=== PATIENT | female | born 1950 | race Caucasian/White ===

== ENCOUNTER → 2017-12-26 11:30 | Outpatient (CLI) | payer MEDICARE, OTHER, SELFPAY ==
--- NOTE | 2017-12-26 | DI.MG.S_ITS ---
BILATERAL DIGITAL SCREENING MAMMOGRAM 3D/2D WITH CAD: 12/26/2017 CLINICAL: Routine screening. Family history of breast cancer. Comparison is made to exams dated: 12/14/2016 mammogram - [facility] and 07/01/2015 mammogram - [facility]. There are scattered fibroglandular elements in both breasts. Current study was also evaluated with a Computer Aided Detection (CAD) system. There is a focal asymmetry in the left breast central to the nipple anterior depth. No other significant masses, calcifications, or other findings are seen in either breast. IMPRESSION: INCOMPLETE: NEEDS ADDITIONAL IMAGING EVALUATION The focal asymmetry in the left breast is indeterminate. Additional views with possible ultrasound are recommended. This exam was interpreted at Station ID: [id number]. NOTE: For mammograms, a report in lay terms will be sent to the patient. Approximately 15% of breast malignancies will not be visualized mammographically. In the management of a palpable breast mass, a negative mammogram must not discourage biopsy of a clinically suspicious lesion. Electronically Signed By: Jaron lu/heidi:12/26/2017 15:39:09 letter sent: Additional Imaging Needed ACR BI-RADS Category 0: Incomplete 3340F
== END ==
PROVIDERS: Family Provider Physician Assistant; PCP Physician Assistant; Visit Provider Physician Assistant
DX: Z12.31 Encounter for screening mammogram for malignant neoplasm of breast (principal); Z80.3 Family history of malignant neoplasm of breast
CPT/HCPCS: 77063; 77067

== ENCOUNTER → 2018-01-09 08:23 | Outpatient (CLI) | payer OTHER, SELFPAY ==
[2018-01-09 08:57] LABS: Bacteria Urine None Seen; RBC Urine None Seen (0-5/HPF); WBC Urine None Seen (0-5/HPF)
[2018-01-09 09:21] LABS: Appearance Urine UA CLEAR; Bilirubin Urine UA NEGATIVE (NEGATIVE); Color Urine UA YELLOW; Glucose Urine UA NEGATIVE (Normal); Ketones Urine UA NEGATIVE (NEGATIVE); Leukocyte Esterase Urine UA NEGATIVE (NEGATIVE); Nitrite Urine UA Negative (Negative); Occult Blood Urine UA TRACE-INTACT (Negative); Protein Urine UA NEGATIVE (Negative); Urobilinogen Urine UA 0.2 E.U./dL (0.2)
[2018-01-09 09:33] LABS: Culture Indicated Urine Cult Not Indicated; Urine Comments Microscopic Normal
[2018-01-09 09:57] LABS: Alanine Aminotransferase 33 IU/L (9-52); Albumin 4.5 g/dL (3.5-5.0); Albumin Globulin Ratio 1.5 (1.0-2.8); Alkaline Phosphatase 72 U/L (38-126); Aspartate Aminotransferase 45 IU/L (14-36); Bilirubin Total 0.6 mg/dL (0.2-1.3); Blood Urea Nitrogen 8 mg/dL (7-17); Calcium 9.9 mg/dL (8.4-10.2); Carbon Dioxide 29 mmol/L (22-32); Chloride 99 mmol/L (98-107); Cholesterol 234 mg/dL (140-199); Estimated Glomerular Filt Rate > 60.0 mL/min (>60); Globulin 3.1 g/dL (1.7-4.1); Glucose 94 mg/dL (80-110); HDL Cholesterol 63 mg/dL (40-60); HEMOLYSIS < 15 (0-50); LDL Cholesterol Calculated 107 mg/dL (<100); Sodium 140 mmol/L (137-145); Total Protein 7.6 g/dL (6.3-8.2); Triglycerides 318 mg/dL (35-150)
[2018-01-11 16:31] LABS: 1 25 Dihydroxy Vitamin D 54 pg/mL (18-72)
== END ==
PROVIDERS: PCP Physician Assistant; Visit Provider Physician Assistant
DX: Z00.01 Encounter for general adult medical examination with abnormal findings (principal); M85.88 Other specified disorders of bone density and structure, other site; E28.39 Other primary ovarian failure; N95.9 Unspecified menopausal and perimenopausal disorder
CPT/HCPCS: 36415; 77080; 80053; 80061; 81001; 82652

== ENCOUNTER → 2018-01-11 14:07 | Outpatient (CLI) | payer OTHER, SELFPAY ==
--- NOTE | 2018-01-11 14:11 | DI.MG.S_ITS ---
UNILATERAL LEFT DIGITAL DIAGNOSTIC MAMMOGRAM 3D/2D WITH ADDITIONAL VIEWS: 01/11/2018 CLINICAL: Additional evaluation requested from prior study. Comparison is made to exams dated: 12/26/2017 mammogram, 12/14/2016 mammogram - [facility], and 07/01/2015 mammogram - [facility]. There are scattered fibroglandular elements in the left breast. There is a benign oval equal density asymmetry with an indistinct margin in the left breast at 12 o'clock middle depth. This is not seen in additional views. No other significant masses or calcifications are seen in the breast. IMPRESSION: BENIGN There is no mammographic evidence of malignancy. A 1 year screening mammogram is recommended. This exam was interpreted at Station ID: [id number]. NOTE: For mammograms, a report in lay terms will be sent to the patient. Approximately 15% of breast malignancies will not be visualized mammographically. In the management of a palpable breast mass, a negative mammogram must not discourage biopsy of a clinically suspicious lesion. Electronically Signed By: Gene friedman/heidi:01/11/2018 14:53:49 letter sent: Normal Exam ACR BI-RADS Category 2: Benign Finding(s) 3342F
== END ==
PROVIDERS: PCP Physician Assistant; Visit Provider Physician Assistant
DX: R92.8 Other abnormal and inconclusive findings on diagnostic imaging of breast (principal)
CPT/HCPCS: 77065; G0279

== ENCOUNTER 2018-02-14 19:49 | Emergency (ER) | payer OTHER, SELFPAY ==
[2018-02-14 19:53] VITALS: BP 108/73; PULSE 75; RESP 16; TEMP 36.4; O2SAT 99
--- NOTE | 2018-02-14 22:48 | PC.NURSE ---
GLF, denies loc/neck pain/dizziness/nausea or other sx, approx 3 cms lac to lt forehead, bleeding controlled with light pressure, amb ind
--- NOTE | 2018-02-14 22:50 | ED_ITS ---
HPI - Wound/Laceration General Chief Complaint: Wound/Laceration Stated Complaint: FACIAL INJURY S/P FALL Time Seen by Provider: 02/14/18 22:41 Source: patient Mode of arrival: ambulatory Limitations: no limitations History of Present Illness HPI narrative: 59-year-old female here for evaluation of a fall and a laceration to her left forehead. Patient states that she was out on a walk where she tripped and fell and hit her head. Did not lose consciousness bleed did have bleeding afterwards. Last tetanus shot was within the past 10 years. No vision changes. No new changes in dentition. Has an abrasion to her left arm from the fall around her left elbow. No other injuries reported Related Data Home Medications Medication Instructions Recorded Confirmed metronidazole [Metrogel] 0.075 % TOPICAL PRN #0 11/10/16 01/16/18 Previous Rx's Medication Instructions Recorded atorvastatin 10 mg tablet 10 mg PO HS #90 tab 12/07/17 levothyroxine 50 mcg tablet 50 mcg PO QAM #90 tab 12/07/17 raloxifene 60 mg tablet 60 mg PO DAILY #30 tab 01/16/18 Allergies Allergy/AdvReac Type Severity Reaction Status Date / Time tetracycline [TETRACYCLINE] Allergy Severe n/v Verified 01/16/18 12:32 Sulfa (Sulfonamide Allergy Unknown rash Verified 01/16/18 12:32 Antibiotics) [SULFA (SULFONAMIDE ANTIBIOTICS)] Review of Systems Constitutional Denies fatigue, Denies fever(s), Denies frequent falls and Denies headache(s) Eyes Denies blurry vision, Denies diplopia and Denies loss of vision ENT Ears, Nose, Mouth, and Throat: Denies dental pain, Denies vertigo, Denies dizziness, Denies headache(s), Denies mouth pain, Denies nasal trauma, Denies neck pain, Denies disequilibrium, Denies sinus pain and Denies sore throat Cardiovascular Denies chest pain and Denies dyspnea Respiratory Denies dyspnea Gastrointestinal Gastrointestinal: Denies diarrhea, Denies nausea and Denies vomiting Musculoskeletal Denies abnormal gait, Denies myalgias, Denies arthralgias and Denies neck pain Integumentary/Breasts Reports wounds ( left-sided of her forehead) Neurologic Denies abnormal gait, Denies behavioral changes, Denies vertigo, Denies dizziness, Denies frequent falls, Denies headache(s), Denies lack of coordination, Denies loss of vision, Denies seizure-like activity and Denies disequilibrium Psychiatric Denies behavioral changes Endocrine Denies fatigue Hematologic/Lymphatic Denies easy bleeding and Denies easy bruising FOR[facility]LY [facility] Medical History Mixed hyperlipidemia (Chronic) Osteopenia after menopause (Chronic) Actinic keratosis (Chronic 2008) Ankle pain (Chronic 2014) Foot pain (Chronic 2014) Hypercholesterolemia (Chronic Unknown) Hyperlipemia (Chronic ~1989) Hypothyroidism (Chronic ~1999) Rosacea (Chronic Unknown) Chickenpox (Resolved 1956) Fractures (Resolved 1963) Measles (Resolved 1957) Mumps (Resolved ~1949) Rubella (Resolved ~1949) Surgical History History of shoulder surgery (Resolved 1987) History of tonsillectomy Family History Father Heart disease High cholesterol Grandmother Diabetes mellitus Mother Hypertension Grandfather Stroke Grandfather Cancer Grandmother No problems noted. Other Family history of cardiovascular disease Social History Smoking Status: Never smoker alcohol intake: never substance use type: does not use Exam Initial Vital Signs Initial Vital Signs: Vital Signs Temperature 97.5 F L 02/14/18 19:53 Pulse Rate 75 02/14/18 19:53 Respiratory Rate 16 02/14/18 19:53 Blood Pressure 108/73 02/14/18 19:53 Pulse Oximetry 99 02/14/18 19:53 Const General: cooperative, healthy appearing, comfortable, well developed, well groomed and No acute distress Nutritional Appearance: average body habitus Orientation: alert, awake and oriented x3 HENMT Head: laceration (left forehead) Ears: hearing grossly normal bilaterally and TM's normal bilaterally Nose: external nose normal and septum normal Face and sinus: normal facial exam Mouth: oral mucosae normal Teeth and gingiva: dentition normal Eyes General: appearance normal, both eyes and all related structures Pupils: PERRL EOM: EOM intact bilaterally Back/Spine/Pelvis Cervical Spine: normal cervical lordosis, No cervical spasm, No cervical spinal tenderness and No step off deformity Skin Other: 2 cm linear laceration left forehead. No active bleeding. No foreign body seen. Small superficial abrasion to the lateral aspect of her left elbow. Neuro General: alert, awake and oriented x3 Cognition: normal cognition Speech: speech normal Extrem General: normal to inspection Other: Full range of motion left elbow Procedures Laceration Repair Laceration 1: Site: face Side (If applicable): left Size (cm): 2 Description: linear Depth: simple, single layer Local Anesthetic: lidocaine 1% Amount of anesthesia used (mL): 3 Pre-repair: wound explored, irrigated extensively and deep structures intact Skin layer closed with: other ( chromic) Size (cm): 4-0 Number of sutures: 7 Course Vital Signs - 8 hr 02/14/18 19:53 Temperature 97.5 F L Pulse Rate 75 Respiratory Rate 16 Blood Pressure 108/73 Pulse Oximetry 99 MDM - Wound/Laceration MDM Narrative Medical decision making narrative: patient with what appears to be mechanical fall resulting in an abrasion over her left elbow and laceration to her left forehead. Laceration was sutured as described above. Patient tolerated procedure well. She was given care instructions. She was given return precautions. Will hold on any further workup for now. She expressed understanding and agreed with plan. Discharge Plan Departure Patient Disposition: Home, Self-Care Clinical Impression: Facial laceration Discharge Date/Time: 02/15/18 00:46 Interventions: ED Discharge Assessment Last Done: 02/15/18 00:46 Instructions: DI for Laceration Repair -- Simple, How to Care for a Surgical Wound-Stitches Activity Restrictions/Additional Instructions: keep the bandage on your head for the next 24 hr. After that you can shower like normal. You can use soap and water. Do not scrub the area. After 24 hr cover the area Like we discussed. the stitches should come out on their own however if they are still there in 7 days they do need to be removed. This can be done by your primary care doctor. Return to the emergency department for any new or worsening symptoms Prescriptions: No Action raloxifene 60 mg tablet 60 mg PO DAILY Qty: 30 RF: 0 metronidazole [Metrogel] 1 % gel 0.075 % Topical PRN Qty: 0 RF: 0 atorvastatin [Lipitor] 10 mg tablet 10 mg PO HS Qty: 90 RF: 3 levothyroxine [Synthroid] 50 mcg tablet 50 mcg PO QAM Qty: 90 RF: 3
== END 2018-02-15 00:46 | disposition home or self-care (01) ==
PROVIDERS: Emergency Provider Emergency Medicine; Family Provider Physician Assistant; PCP Physician Assistant
DX: S01.81XA Laceration without foreign body of other part of head, initial encounter (principal); W01.0XXA Fall on same level from slipping, tripping and stumbling without subsequent striking against object, initial encounter
CPT/HCPCS: 12011; 99282; 99283

== ENCOUNTER 2018-03-11 16:11 | Emergency (ER) | payer OTHER, SELFPAY ==
[2018-03-11 16:17] VITALS: BP 136/80; PULSE 79; RESP 20; TEMP 36.9; O2SAT 98; BMI 24.1
--- NOTE | 2018-03-11 16:28 | ED.EXTPRO ---
HPI - Extremity Problem <Rowena Phan PA-C - Last Filed: 03/11/18 21:49> General Chief complaint: Extremity Problem,Nontraumatic Stated complaint: RIGHT LEG, SUDDEN ONSET PAIN,THINKS BLOOD CLOT Time Seen by Provider: 03/11/18 16:29 Source: patient Mode of arrival: ambulatory Limitations: no limitations History of Present Illness HPI Narrative: This 67-year-old female comes to the ED today due to concern for blood clot. She states that she was seen at urgent care and sent here. She states that she had onset of pain without any known trauma last night, worse with flexing the foot and using the accelerator. She was on her feet for several hours today and states the pain has worsened after standing, better at rest. She is concerned about possible blood clot after noticing a little bit of swelling and reading side effects of Raloxifene which she just started in the last few weeks.. She states that the pain is mainly around the ankle, not in the calf. She denies any chest pain or dyspnea. She denies any nausea. She states she has a mild headache which has not kept her from activity, no vision change or other new complaints on systems review. She denies any personal or family history of blood clots. Last time she traveled was over a month ago prior to starting Raloxifene Related Data Home Medications Medication Instructions Recorded Confirmed metronidazole [Metrogel] 0.075 % TOPICAL PRN #0 11/10/16 01/16/18 Previous Rx's Medication Instructions Recorded atorvastatin 10 mg tablet 10 mg PO HS #90 tab 12/07/17 levothyroxine 50 mcg tablet 50 mcg PO QAM #90 tab 12/07/17 raloxifene 60 mg tablet 60 mg PO DAILY #30 tab 03/06/18 Allergies Allergy/AdvReac Type Severity Reaction Status Date / Time tetracycline [TETRACYCLINE] Allergy Severe n/v Verified 01/16/18 12:32 Sulfa (Sulfonamide Allergy Unknown rash Verified 01/16/18 12:32 Antibiotics) [SULFA (SULFONAMIDE ANTIBIOTICS)] Review of Systems <Rowena Phan PA-C - Last Filed: 03/11/18 21:49> Review of Systems All systems reviewed & are unremarkable except as noted in HPI and below Exam <Rowena Phan PA-C - Last Filed: 03/11/18 21:49> Narrative Exam Narrative: GENERAL APPEARANCE: Patient sitting comfortably, in no distress. NECK/THYROID: Neck supple, no JVD. LUNGS: Clear to auscultation bilaterally. HEART: Regular rate and rhythm without murmur, normal S1, S2, no S3 or S4. ABDOMEN: Soft, NT, ND, + BS x 4 quadrants EXTREMITIES: No cyanosis or trace R. pedal edema. No calf tenderness NEUROLOGIC: Alert and oriented, normal speech, gait and coordination. MS: Trace R. medial ankle effusion, mild TTP around the lateral ankle. Achilles intact by palpation. No TTP ove the foot or toes, full AROM Initial Vital Signs Initial Vital Signs: Vital Signs Temperature 98.5 F 03/11/18 16:17 Pulse Rate 79 03/11/18 16:17 Respiratory Rate 20 03/11/18 16:17 Blood Pressure 136/80 H 03/11/18 16:17 Pulse Oximetry 98 03/11/18 16:17 <Juan Caruso MD - Last Filed: 03/12/18 07:44> Initial Vital Signs Initial Vital Signs: Vital Signs Temperature 98.5 F 03/11/18 16:17 Pulse Rate 79 03/11/18 16:17 Respiratory Rate 20 03/11/18 16:17 Blood Pressure 136/80 H 03/11/18 16:17 Pulse Oximetry 98 03/11/18 16:17 Course <Rowena Phan PA-C - Last Filed: 03/11/18 21:49> Orders Ordered: ED Orders 03/11/18 17:02 periph venous low extrem rt Stat Vital Signs - 8 hr 03/11/18 16:17 03/11/18 18:33 03/11/18 18:35 Temperature 98.5 F Pulse Rate 79 78 78 Respiratory Rate 20 16 20 Blood Pressure 136/80 H 112/82 H Blood Pressure [Left Arm] 112/82 H Pulse Oximetry 98 97 98 <Juan Caruso MD - Last Filed: 03/12/18 07:44> Orders Ordered: ED Orders 03/11/18 17:02 perip venous low extrem rt Stat Vital Signs - 8 hr 03/11/18 16:17 03/11/18 18:33 03/11/18 18:35 Temperature 98.5 F Pulse Rate 79 78 78 Respiratory Rate 20 16 20 Blood Pressure 136/80 H 112/82 H Blood Pressure [Left Arm] 112/82 H Pulse Oximetry 98 97 98 MDM - Extremity (Nontraumatic) <Rowena Phan PA-C - Last Filed: 03/11/18 21:49> Imaging Data Venous US: Radiologist's impression: View Report History [address] [address] Ultrasound Report Signed Patient: Mariya Cárdenas MR#: [id number] : 1950 Acct:[id number] Age/Sex: 67 / F Date of Service: 03/11/18 Loc: ED Accession Number: [id number] Procedure: US periph venous low extrem rt Ordering Provider: Rowena Phan P.A-C PROCEDURE: US PERIPH VENOUS LOW EXTREM RT INDICATIONS: RIGHT ANKLE PAIN, EDEMA TECHNIQUE: Real-time imaging, as well as color and pulse Doppler interrogation, were performed of the lower extremity deep veins from the inguinal ligament to the popliteal fossa. COMPARISON: None. FINDINGS: The deep veins are normally compressible, and free of intraluminal thrombus. Color and pulse Doppler demonstrate normal phasic intraluminal flow. There is normal augmentation response to distal compression maneuver. IMPRESSION: No evidence of right lower extremity DVT. Dictated by: Brien Ye M.D. on 03/11/2018 at 17:58 Approved by: Brien Ye M.D. on 03/11/2018 at 17:58 Discharge Plan Departure Patient Disposition: Home Clinical Impression: Ankle strain Discharge Date/Time: 03/11/18 18:35 Interventions: ED Discharge Assessment Last Done: 03/11/18 18:35 Instructions: DI for Ankle Sprain Activity Restrictions/Additional Instructions: You should return if you have any acutely worsening symptoms, or new symptoms such as redness or fever. There was no sign of a blood clot on your ultrasound today, and this may be more of a muscular or soft tissue strain that is causing your discomfort. Please wear the splint that we gave you whenever you are on your feet. Gentle walking is okay, but try not to be on your ft for long periods of time or on uneven ground. This is likely to take 4-8 weeks to fully resolve, but you should follow up with your PCP if not starting to improve by next week as you may need further testing. Prescriptions: No Action metronidazole [Metrogel] 1 % gel 0.075 % Topical PRN Qty: 0 RF: 0 atorvastatin [Lipitor] 10 mg tablet 10 mg PO HS Qty: 90 RF: 3 levothyroxine [Synthroid] 50 mcg tablet 50 mcg PO QAM Qty: 90 RF: 3 raloxifene 60 mg tablet 60 mg PO DAILY Qty: 30 RF: 0 Referrals: Palak Collado PA-C [Primary Care Provider] - <Juan Caruso MD - Last Filed: 03/12/18 07:44> Sign Out Provider Sign Out Attestation: The PA/VEHICLE UPHOLSTERER functioned independently for the care of this pt, I was available, but not asked to participate in care. I am unable to determine appropriateness of management without personally examining the pt.
--- NOTE | 2018-03-11 17:02 | DI.US.S_ITS ---
PROCEDURE: US PERIPH VENOUS LOW EXTREM RT INDICATIONS: RIGHT ANKLE PAIN, EDEMA TECHNIQUE: Real-time imaging, as well as color and pulse Doppler interrogation, were performed of the lower extremity deep veins from the inguinal ligament to the popliteal fossa. COMPARISON: None. FINDINGS: The deep veins are normally compressible, and free of intraluminal thrombus. Color and pulse Doppler demonstrate normal phasic intraluminal flow. There is normal augmentation response to distal compression maneuver. IMPRESSION: No evidence of right lower extremity DVT. Dictated by: Brien Ye M.D. on 03/11/2018 at 17:58 Approved by: Brien Ye M.D. on 03/11/2018 at 17:58
[2018-03-11 18:33] VITALS: BP 112/82; PULSE 78; RESP 16; O2SAT 97
[2018-03-11 18:35] VITALS: BP 112/82; PULSE 78; RESP 20; O2SAT 98
== END 2018-03-11 18:35 | disposition home or self-care (01) ==
PROVIDERS: Emergency Provider Internal Medicine; Family Provider Physician Assistant; PCP Physician Assistant
DX: S96.911A Strain of unspecified muscle and tendon at ankle and foot level, right foot, initial encounter (principal); X50.1XXA Overexertion from prolonged static or awkward postures, initial encounter
CPT/HCPCS: 93971; 99282; 99285

== ENCOUNTER → 2018-05-05 08:36 | Outpatient (CLI) | payer OTHER, SELFPAY ==
[2018-05-05 10:18] LABS: Cholesterol 184 mg/dL (140-199); HDL Cholesterol 63 mg/dL (40-60); LDL Cholesterol Calculated 91 mg/dL (<100); Triglycerides 150 mg/dL (35-150)
== END ==
PROVIDERS: PCP Physician Assistant; Visit Provider Physician Assistant
DX: E78.2 Mixed hyperlipidemia (principal)
CPT/HCPCS: 36415; 80061

== ENCOUNTER → 2018-12-06 11:57 | Outpatient (CLI) | payer OTHER, SELFPAY ==
[2018-12-06 13:39] LABS: Thyroid Stimulating Hormone 3.82 uIU/mL (0.47-4.68)
== END ==
PROVIDERS: Family Provider Physician Assistant; PCP Physician Assistant; Visit Provider Registered Nurse
DX: E03.9 Hypothyroidism, unspecified (principal)
CPT/HCPCS: 36415; 84443

== ENCOUNTER → 2019-01-15 12:01 | Outpatient (CLI) | payer OTHER, SELFPAY ==
--- NOTE | 2019-01-15 12:03 | DI.MG.S_ITS ---
BILATERAL DIGITAL SCREENING MAMMOGRAM 3D/2D WITH CAD: 01/15/2019 CLINICAL: Routine screening. Family history of breast cancer. Comparison is made to exams dated: 12/26/2017 mammogram, 12/14/2016 mammogram - [facility], and 07/01/2015 mammogram - [facility]. There are scattered fibroglandular elements in both breasts. Current study was also evaluated with a Computer Aided Detection (CAD) system. No significant masses, calcifications, or other findings are seen in either breast. There has been no significant interval change. IMPRESSION: NEGATIVE There is no mammographic evidence of malignancy. A 1 year screening mammogram is recommended. This exam was interpreted at Station ID: [id number]. NOTE: For mammograms, a report in lay terms will be sent to the patient. Approximately 15% of breast malignancies will not be visualized mammographically. In the management of a palpable breast mass, a negative mammogram must not discourage biopsy of a clinically suspicious lesion. Electronically Signed By: Keshia hudson/heidi:01/15/2019 12:50:48 letter sent: Normal Exam ACR BI-RADS Category 1: Negative 3341F
== END ==
PROVIDERS: Family Provider Physician Assistant; PCP Physician Assistant; Visit Provider Physician Assistant
DX: Z12.31 Encounter for screening mammogram for malignant neoplasm of breast (principal); Z80.3 Family history of malignant neoplasm of breast
CPT/HCPCS: 77063; 77067

== ENCOUNTER → 2019-07-23 08:08 | Outpatient (CLI) | payer OTHER, SELFPAY ==
[2019-07-23 10:45] LABS: Alanine Aminotransferase 18 IU/L (<35); Albumin 4.8 g/dL (3.5-5.0); Albumin Globulin Ratio 1.8 (1.0-2.8); Alkaline Phosphatase 71 U/L (38-126); Aspartate Aminotransferase 42 IU/L (14-36); Bilirubin Total 0.7 mg/dL (0.2-1.3); Blood Urea Nitrogen 9 mg/dL (7-17); Calcium 9.7 mg/dL (8.4-10.2); Carbon Dioxide 26 mmol/L (22-32); Chloride 101 mmol/L (98-107); Cholesterol 312 mg/dL (140-199); Estimated Glomerular Filt Rate > 60.0 mL/min (>60); Globulin 2.7 g/dL (1.7-4.1); Glucose 89 mg/dL (80-110); HDL Cholesterol 55 mg/dL (40-60); HEMOLYSIS < 15 (0-50); LDL Cholesterol Calculated 211 mg/dL (<100); Sodium 137 mmol/L (137-145); Total Protein 7.5 g/dL (6.3-8.2); Triglycerides 231 mg/dL (35-150)
[2019-07-23 10:54] LABS: Vitamin D 25 Hydroxy (D3) 47.3 ng/mL (30.0-100.0)
[2019-07-23 11:08] LABS: Thyroid Stimulating Hormone 4.55 uIU/mL (0.47-4.68)
== END ==
PROVIDERS: PCP Physician Assistant; Visit Provider Physician Assistant
DX: E78.2 Mixed hyperlipidemia (principal); M81.0 Age-related osteoporosis without current pathological fracture
CPT/HCPCS: 36415; 80053; 80061; 82306; 84443

== ENCOUNTER → 2020-01-09 07:11 | Outpatient (CLI) | payer MEDICARE, SELFPAY ==
[2020-01-09 07:17] LABS: Bacteria Urine None Seen
[2020-01-09 08:03] LABS: Alanine Aminotransferase 19 IU/L (<35); Albumin 4.4 g/dL (3.5-5.0); Albumin Globulin Ratio 1.7 (1.0-2.8); Alkaline Phosphatase 67 U/L (38-126); Aspartate Aminotransferase 39 IU/L (14-36); BUN Creatinine Ratio 16.4 (6-22); Bilirubin Total 0.4 mg/dL (0.2-1.3); Blood Urea Nitrogen 9 mg/dL (7-17); Calcium 9.8 mg/dL (8.4-10.2); Carbon Dioxide 27 mmol/L (22-32); Chloride 103 mmol/L (98-107); Cholesterol 189 mg/dL (140-199); Estimated Glomerular Filt Rate > 60.0 mL/min (>60); Globulin 2.6 g/dL (1.7-4.1); Glucose 89 mg/dL (80-110); HDL Cholesterol 55 mg/dL (40-60); HEMOLYSIS < 15 (0-50); LDL Cholesterol Calculated 85 mg/dL (<100); Potassium 4.3 mmol/L (3.4-5.1); Sodium 138 mmol/L (137-145); Triglycerides 244 mg/dL (35-150)
[2020-01-09 08:34] LABS: Thyroid Stimulating Hormone 5.52 uIU/mL (0.47-4.68)
[2020-01-09 10:10] LABS: Appearance Urine UA CLEAR; Bilirubin Urine UA NEGATIVE (NEGATIVE); Color Urine UA YELLOW; Glucose Urine UA NEGATIVE (Negative); Ketones Urine UA NEGATIVE (NEGATIVE); Leukocyte Esterase Urine UA NEGATIVE (NEGATIVE); Nitrite Urine UA NEGATIVE (Negative); Occult Blood Urine UA TRACE-INTACT (Negative); Protein Urine UA NEGATIVE (Negative); Urobilinogen Urine UA 0.2 E.U./dL (0.2)
[2020-01-09 10:36] LABS: Culture Indicated Urine Cult Not Indicated; RBC Urine 0-1/HPF (0-5/HPF); Squamous Epithelial Cell Urine 0-1 /HPF (0-5/HPF); WBC Urine 0-1/HPF (0-5/HPF)
== END ==
PROVIDERS: PCP Nurse Practitioner Family; Referring Provider Nurse Practitioner Family; Visit Provider Nurse Practitioner Family
DX: R31.29 Other microscopic hematuria (principal); R74.8 Abnormal levels of other serum enzymes; E03.9 Hypothyroidism, unspecified; E78.2 Mixed hyperlipidemia
CPT/HCPCS: 36415; 80053; 80061; 81001; 84443

== ENCOUNTER 2020-02-02 21:23 | Emergency (ER) | payer MEDICARE, SELFPAY ==
[2020-02-02] VITALS (8 sets, daily range): BP systolic 100–134; BP diastolic 63–73; PULSE 87–114; RESP 13–28; TEMP 37.6; O2SAT 86–99; BMI 24.3
[2020-02-02 22:16] LABS: Add Manual Diff / Slide Review NO; Basophils Absolute Auto 200 /uL (0-100); Basophils Percent Auto 0.8 % (0-2); Eosinophils Absolute Auto 100 /uL (0-450); Eosinophils Percent Auto 0.3 % (2-4); Hematocrit 39.6 % (36-46); Hemoglobin 13.2 g/dL (12.0-16.0); Lymphocytes Absolute Auto 2500 /uL (1100-4500); Lymphocytes Percent Auto 12.8 % (25-40); Mean Corpuscular HGB Conc 33.2 % (30-36); Mean Corpuscular Hemoglobin 29.9 PG (26-34); Mean Corpuscular Volume 89.9 fL (80-100); Monocytes Absolute Auto 1800 /uL (0-900); Monocytes Percent Auto 9.3 % (3-14); Neutrophils Absolute Auto 14800 /uL (1500-7000); Neutrophils Percent Auto 76.8 % (50-75); Platelet Count 272 X10^3/uL (150-400); Red Blood Cell Count 4.41 X10^6/uL (4.0-5.2); Red Cell Distribution Width 13.2 % (11.6-14.8); White Blood Cell Count 19.3 X10^3/uL (4.5-11.0)
[2020-02-02 22:22] LABS: Bacteria Urine Occasional (0-1); Culture Indicated Urine Specimen Cultured; RBC Urine 0-1/HPF (0-5/HPF); Squamous Epithelial Cell Urine 0-1 /HPF (0-5/HPF); WBC Urine 0-1/HPF (0-5/HPF)
[2020-02-02 22:26] LABS: Alanine Aminotransferase 15 IU/L (<35); Albumin 4.5 g/dL (3.5-5.0); Albumin Globulin Ratio 1.6 (1.0-2.8); Alkaline Phosphatase 73 U/L (38-126); Aspartate Aminotransferase 34 IU/L (14-36); BUN Creatinine Ratio 16.4 (6-22); Bilirubin Total 0.7 mg/dL (0.2-1.3); Blood Urea Nitrogen 9 mg/dL (7-17); Calcium 9.6 mg/dL (8.4-10.2); Carbon Dioxide 22 mmol/L (22-32); Chloride 100 mmol/L (98-107); Estimated Glomerular Filt Rate > 60.0 mL/min (>60); Globulin 2.8 g/dL (1.7-4.1); Glucose 129 mg/dL (80-110); HEMOLYSIS < 15 (0-50); Lipase 46 U/L (23-300); Potassium 3.6 mmol/L (3.4-5.1); Sodium 133 mmol/L (137-145); Total Protein 7.3 g/dL (6.3-8.2)
[2020-02-02 22:27] LABS: Lactate (Lactic Acid) 1.1 mmol/L (0.7-2.1)
--- NOTE | 2020-02-02 22:55 | ED_ITS ---
HPI - General Adult General Chief complaint: Abdominal Pain Stated complaint: abdominal pain since last night, feels like gas Time Seen by Provider: 02/02/20 21:53 Source: patient Mode of arrival: Ambulatory Limitations: no limitations History of Present Illness HPI narrative: 69-year-old female here for evaluation of bilateral lower abdominal pain. She states that her symptoms started yesterday. She describes it as a cast pain like sensation. She states that it does come and go. Had to ?normal? bowel movements today without any change in the symptoms. No nausea vomiting. Did report a fever earlier today. Has had multiple colonoscopies in the past which she was told were unremarkable. There were 10 years in between the colonoscopies. There are never any biopsies taken. No prior abdominal surgeries. Has not tried anything for symptoms prior to arrival Related Data Home Medications Medication Instructions Recorded Confirmed metronidazole [Metrogel] 0.075 % TOPICAL PRN #0 11/10/16 01/02/20 ketoconazole 2 % topical cream 1 applictn TOP DAILY PRN 01/02/20 01/02/20 Previous Rx's Medication Instructions Recorded raloxifene 60 mg tablet 60 mg PO DAILY #90 tab 07/23/19 atorvastatin 10 mg tablet 10 mg PO HS #90 tab 12/10/19 levothyroxine 50 mcg tablet 50 mcg PO QAM #90 tab 12/10/19 levothyroxine 75 mcg tablet 75 mcg PO DAILY #90 tab 01/10/20 ciprofloxacin HCl 500 mg PO BID 10 Days #20 tab 02/03/20 metronidazole [Flagyl] 500 mg PO TID 10 Days #30 tab 02/03/20 Allergies Allergy/AdvReac Type Severity Reaction Status Date / Time tetracycline [TETRACYCLINE] Allergy Severe n/v Verified 01/02/20 13:35 Sulfa (Sulfonamide Allergy Unknown rash Verified 01/02/20 13:35 Antibiotics) [SULFA (SULFONAMIDE ANTIBIOTICS)] Review of Systems Constitutional Constitutional: Reports fever(s) and Denies headache(s) ENT Ears, Nose, Mouth, and Throat: Denies headache(s) Cardiovascular Cardiovascular: Denies chest pain and Denies dyspnea Respiratory Respiratory: Denies dyspnea Gastrointestinal Gastrointestinal: Reports abdominal pain, Denies change in bowel habits, Denies nausea and Denies vomiting Genitourinary Genitourinary: Denies dysuria Genitourinary: Denies dysuria Musculoskeletal Musculoskeletal: Denies arthralgias and Denies myalgias Integumentary/Breasts Skin/Breast: Denies rash Neurologic Neurologic: Denies behavioral changes and Denies headache(s) Psychiatric Psychiatric: Denies behavioral changes Hematologic/Lymphatic Hematologic/Lymphatic: Denies easy bleeding and Denies easy bruising Patient History Medical History Actinic keratosis (Chronic 2008) Ankle pain (Chronic 2014) Chickenpox (Resolved 1956) Foot pain (Chronic 2014) Fractures (Resolved 1963) Hypercholesterolemia (Chronic Unknown) Hyperlipemia (Chronic ~1989) Hypothyroidism (Chronic ~1999) Impacted cerumen, bilateral (Acute) Measles (Resolved 1957) Microscopic hematuria (Acute) Mixed hyperlipidemia (Chronic) Mumps (Resolved ~1949) Osteopenia after menopause (Chronic) Rosacea (Chronic Unknown) Rubella (Resolved ~1949) Screening for malignant neoplasm of breast (Acute) Surgical History History of shoulder surgery (Resolved 1987) History of tonsillectomy Family History Father Heart disease High cholesterol Grandmother Diabetes mellitus Mother Hypertension Grandfather Stroke Grandfather Cancer Grandmother No problems noted. Other Family history of cardiovascular disease Social History Smoking Status: Never smoker second hand exposure: No alcohol intake: never substance use type: does not use Smoking Status: Never smoker Substance Use Type: does not use Exam Initial Vital Signs Initial Vital Signs: Vital Signs Temperature 99.7 F H 02/02/20 21:46 Pulse Rate 113 H 02/02/20 21:46 Respiratory Rate 18 02/02/20 21:46 Blood Pressure 134/73 02/02/20 21:46 Pulse Oximetry 98 02/02/20 21:46 Const General: cooperative, comfortable and well developed Limitations: mental status not altered HENVA Head: normal to inspection and normocephalic Resp Effort & Inspection: normal respiratory effort Auscultation: clear to auscultation bilaterally Cardio Rate: tachycardic Rhythm: regular rhythm GI Inspection: non-distended Palpation: soft, No firm and tender (Slight tenderness lower abdomen) Back/Spine/Pelvis Back: No CVA tenderness Skin Lesions: no lesions Rashes: no rashes Neuro General: patient alert and patient awake Cognition: normal cognition Speech: speech normal Extrem General: normal to inspection and capillary refill normal Psych Appearance: grossly normal and well kempt Scores GCS [place] coma scale eye opening: Spontaneous [place] coma scale verbal response: Orientated [place] coma scale motor response: Obey commands [place] coma scale total score: 15 Course Orders Ordered: ED Orders 02/02/20 21:45 Urine Culture Stat Urine Microscopic Stat 02/02/20 22:05 Complete Blood Count AUTO DIFF Stat Comprehensive Metabolic Panel Stat Lactate (Lactic Acid) Stat Lipase Stat 02/02/20 22:56 CT abdomen pelvis w con Stat Discontinued Medications Ciprofloxacin (Cipro) 500 mg PO NOW ONE Stop: 02/03/20 00:38 Last Admin: 02/03/20 00:43 Dose: 500 mg Documented by: FRANCISCO Sodium Chloride (Normal Saline 0.9%) 1,000 mls @ 1,000 mls/hr IV BOLUS ONE Stop: 02/02/20 23:54 Last Infusion: 02/03/20 00:45 Dose: 0 mls/hr Documented by: Admin: 02/02/20 23:26 Dose: 1,000 mls/hr Documented by: FRANCISCO Ketorolac Tromethamine (Toradol) 30 mg IV NOW ONE Stop: 02/03/20 00:38 Last Admin: 02/03/20 00:43 Dose: 30 mg Documented by: FRANCISCO Metronidazole (Metronidazole) 500 mg PO NOW ONE Stop: 02/03/20 00:38 Last Admin: 02/03/20 00:43 Dose: 500 mg Documented by: FRANCISCO Vital Signs Vital signs: Vital Signs - 8 hr 02/02/20 21:46 02/02/20 21:54 02/02/20 22:00 Temperature 99.7 F H Pulse Rate 113 H 114 H 109 H Respiratory Rate 18 21 Blood Pressure 134/73 116/71 100/66 Pulse Oximetry 98 86 L 97 02/02/20 22:30 02/02/20 23:00 02/02/20 23:01 Temperature Pulse Rate 100 H 100 H 94 H Respiratory Rate 15 28 H 23 Blood Pressure 106/67 101/70 Pulse Oximetry 96 95 96 02/02/20 23:30 02/02/20 23:31 02/03/20 00:00 Temperature Pulse Rate 87 91 H 91 H Respiratory Rate 13 16 21 Blood Pressure 111/63 113/57 L Pulse Oximetry 99 99 99 02/03/20 00:59 Temperature Pulse Rate 92 H Respiratory Rate 16 Blood Pressure 119/66 Pulse Oximetry 98 Medical Decision Making Lab Data Lab results reviewed: Yes I reviewed the patient's lab results. Result diagrams: 02/02/20 22:05 02/02/20 22:05 Labs: Lab Results 02/02/20 02/02/20 02/02/20 Range/Units 21:45 22:05 22:05 WBC 19.3 H (4.5-11.0) X10^3/uL RBC 4.41 (4.0-5.2) X10^6/uL Hgb 13.2 (12.0-16.0) g/dL Hct 39.6 (36-46) % MCV 89.9 (80-100) fL MCH 29.9 (26-34) PG MCHC 33.2 (30-36) % RDW 13.2 (11.6-14.8) % Plt Count 272 (150-400) X10^3/uL Neut % (Auto) 76.8 H (50-75) % Lymph % (Auto) 12.8 L (25-40) % [place] % (Auto) 9.3 (3-14) % Eos % (Auto) 0.3 L (2-4) % Baso % (Auto) 0.8 (0-2) % Neut # (Auto) 03123 H (8046-0192) /uL Lymph # (Auto) 2500 (9066-7951) /uL [place] # (Auto) 1800 H (0-900) /uL Eos # (Auto) 100 (0-450) /uL Baso # (Auto) 200 H (0-100) /uL Sodium 133 L (137-145) mmol/L Potassium 3.6 (3.4-5.1) mmol/L Chloride 100 (98-107) mmol/L Carbon Dioxide 22 (22-32) mmol/L BUN 9 (7-17) mg/dL Creatinine 0.55 (0.52-1.04) mg/dL Estimated GFR > 60.0 (>60) mL/min BUN/Creatinine Ratio 16.4 (6-22) Glucose 129 H (80-110) mg/dL Lactate (0.7-2.1) mmol/L Calcium 9.6 (8.4-10.2) mg/dL Total Bilirubin 0.7 (0.2-1.3) mg/dL AST 34 (14-36) IU/L ALT 15 (<35) IU/L Alkaline Phosphatase 73 (38-126) U/L Total Protein 7.3 (6.3-8.2) g/dL Albumin 4.5 (3.5-5.0) g/dL Globulin 2.8 (1.7-4.1) g/dL Albumin/Globulin Ratio 1.6 (1.0-2.8) Lipase 46 (23-300) U/L Urine RBC 0-1/hpf (0-5/HPF) Urine WBC 0-1/hpf (0-5/HPF) Ur Squamous Epith Cells 0-1 /hpf (0-5/HPF) Urine Bacteria Occasional (0-1) (None) Ur Culture Indicated? Specimen cultured 02/02/20 Range/Units 22:05 WBC (4.5-11.0) X10^3/uL RBC (4.0-5.2) X10^6/uL Hgb (12.0-16.0) g/dL Hct (36-46) % MCV (80-100) fL MCH (26-34) PG MCHC (30-36) % RDW (11.6-14.8) % Plt Count (150-400) X10^3/uL Neut % (Auto) (50-75) % Lymph % (Auto) (25-40) % [place] % (Auto) (3-14) % Eos % (Auto) (2-4) % Baso % (Auto) (0-2) % Neut # (Auto) (8282-0238) /uL Lymph # (Auto) (4753-8976) /uL [place] # (Auto) (0-900) /uL Eos # (Auto) (0-450) /uL Baso # (Auto) (0-100) /uL Sodium (137-145) mmol/L Potassium (3.4-5.1) mmol/L Chloride (98-107) mmol/L Carbon Dioxide (22-32) mmol/L BUN (7-17) mg/dL Creatinine (0.52-1.04) mg/dL Estimated GFR (>60) mL/min BUN/Creatinine Ratio (6-22) Glucose (80-110) mg/dL Lactate 1.1 (0.7-2.1) mmol/L Calcium (8.4-10.2) mg/dL Total Bilirubin (0.2-1.3) mg/dL AST (14-36) IU/L ALT (<35) IU/L Alkaline Phosphatase (38-126) U/L Total Protein (6.3-8.2) g/dL Albumin (3.5-5.0) g/dL Globulin (1.7-4.1) g/dL Albumin/Globulin Ratio (1.0-2.8) Lipase (23-300) U/L Urine RBC (0-5/HPF) Urine WBC (0-5/HPF) Ur Squamous Epith Cells (0-5/HPF) Urine Bacteria (None) Ur Culture Indicated? Urine Dip Bedside Urine Glucose Negative Bedside Urine Bilirubin - Negative Bedside Urine Ketone - Negative Urine Specific [place] 1.020 Bedside Urine Occult Blood +++ Bedside Urine pH 6.0 Bedside Urine Protein +/- 15 Bedside Urine Urobilinogen - Negative Bedside Urine Nitrite - Negative Bedside Urine Leukocytes +/- 15 Esterase Point of care testing: Urine Dip Bedside Urine Glucose Negative Bedside Urine Bilirubin - Negative Bedside Urine Ketone - Negative Urine Specific [place] 1.020 Bedside Urine Occult Blood +++ Bedside Urine pH 6.0 Bedside Urine Protein +/- 15 Bedside Urine Urobilinogen - Negative Bedside Urine Nitrite - Negative Bedside Urine Leukocytes +/- [address] scan - abdomen/pelvis: Radiologist's Impression: Acute sigmoid diverticulitis without complications MDM Narrative Medical decision making narrative: Patient did have a leukocytosis and was tachycardic upon arrival but was nontoxic appearing. CT scan of the abdomen showed diverticulitis. This does match her history and physical. Patient was able to take the 1st dose of antibiotics here in the ER. There were no findings on the CT scan concerning for any acute surgical abnormalities. A prescription for the remainder the antibiotics is electronically transmitted to the pharmacy of her choice. I feel given her clinical presentation that the patient is safe to be discharged home with oral antibiotics. She was given return precautions and follow-up instructions. She expressed understanding and agreement. Discharge Plan Departure Patient Disposition: Home Clinical Impression: Diverticulitis Discharge Date/Time: 02/03/20 01:01 Instructions: DI for Diverticulitis Activity Restrictions/Additional Instructions: A prescription for antibiotics was electronically transmitted to [facility]. Recommend that you contact your primary provider for follow-up. Return to the emergency department for any new or worsening symptoms. Prescriptions: New ciprofloxacin HCl 500 mg tablet 500 mg PO BID 10 Days Qty: 20 RF: 0 metronidazole [Flagyl] 500 mg tablet 500 mg PO TID 10 Days Qty: 30 RF: 0 No Action metronidazole [Metrogel] 1 % gel 0.075 % Topical PRN Qty: 0 RF: 0 raloxifene 60 mg tablet 60 mg PO DAILY Qty: 90 RF: 3 levothyroxine [Synthroid] 50 mcg tablet 50 mcg PO QAM Qty: 90 RF: 0 atorvastatin [Lipitor] 10 mg tablet 10 mg PO HS Qty: 90 RF: 0 levothyroxine 75 mcg tablet 75 mcg PO DAILY Qty: 90 RF: 0 ketoconazole 2 % cream 1 applictn TOP DAILY PRNRF: 0 Referrals: Francis Frausto ARNP [Primary Care Provider] -
--- NOTE | 2020-02-02 22:56 | DI.CT.S_ITS ---
PROCEDURE: CT ABDOMEN PELVIS W CON INDICATIONS: Bilateral lower abdominal pain TECHNIQUE: After the administration of oral and intravenous contrast, 5 mm thick sections acquired from the diaphragms to the symphysis. 5 mm thick coronal and sagittal reformats were performed. For radiation dose reduction, the following was used: automated exposure control, adjustment of mA and/or kV according to patient size. COMPARISON: None. FINDINGS: Image quality: Excellent. ABDOMEN: Lung bases: Lung bases are clear. Heart size is normal. Solid organs: Liver is normal in size and enhancement. Gallbladder is not enlarged or inflamed. Biliary system is non-dilated. Pancreas enhances normally. Spleen is normal in size and enhancement. No adrenal nodules. Kidneys are normal in size and enhancement, without hydronephrosis. Peritoneum and bowel: The stomach and duodenum are unremarkable. The small bowel loops are nondilated. The appendix is well visualized and appears to be within normal limits. Colonic diverticulosis is most pronounced involving the sigmoid colon. Within the sigmoid colon there is prominent focal wall thickening with edema identified within the adjacent mesentery in the small amount of free fluid evident within the pelvis. No loculated fluid collections or free air is evident. Nodes and vessels: No retroperitoneal or mesenteric adenopathy. Aorta and inferior vena cava are normal in caliber. There is aortic atherosclerosis. Bones: No acute fracture or suspicious osseous lesion is identified. Moderate to severe degenerative changes of the imaged spine are present. PELVIS: Genitourinary: The urinary bladder is decompressed and subsequently not well evaluated. The uterus and ovaries are not adequately evaluated on CT, but appear to be normal in size. Miscellaneous: No inguinal hernias or adenopathy. A small amount of free fluid is evident within the pelvis. There is no loculated fluid collection or free air. Bones: No suspicious bony lesions. No acute pelvic fractures are evident. Moderate degenerative changes of the pelvic joints are present. IMPRESSION: 1. Sigmoid diverticulitis. A colonoscopy is recommended to exclude the possibility of an underlying lesion when the patient's acute symptoms have resolved. 2. Small amount of free fluid within the pelvis probably is reactive. However, very early perforation cannot be completely excluded. There is no abscess or free air. Note: The preliminary report provided by [facility] is concordant with the final report. Dictated by: Franck Garcia M.D. on 02/03/2020 at 6:25 Approved by: Franck Garcia M.D. on 02/03/2020 at 6:31
[2020-02-02] MEDS: SODIUM CHLORIDE 0.9% 1,000 ML 1000 ML IV (23:26)
[2020-02-03] VITALS: BP 113/57; PULSE 91; RESP 21; O2SAT 99
[2020-02-03] MEDS: KETOROLAC 60 MG/2 ML VIAL 30 MG IV (00:43)
[2020-02-03] MEDS: CIPROFLOXACIN 500 MG TABLET PO (00:43)
[2020-02-03] MEDS: metroNIDAZOLE 250 MG TABLET 500 MG PO (00:43)
[2020-02-03 00:59] VITALS: BP 119/66; PULSE 92; RESP 16; O2SAT 98
== END 2020-02-03 01:01 | disposition home or self-care (01) ==
PROVIDERS: Emergency Provider Emergency Medicine; PCP Nurse Practitioner Family
DX: K57.92 Diverticulitis of intestine, part unspecified, without perforation or abscess without bleeding (principal); R50.9 Fever, unspecified; R00.0 Tachycardia, unspecified
CPT/HCPCS: 36415; 74177; 80053; 81003; 81015; 83605; 83690; 85025; 87086; 96361; 96374; 99284; 99285; J1885; Q9967

== ENCOUNTER → 2020-02-06 14:42 | Outpatient (CLI) | payer MEDICARE, SELFPAY ==
[2020-02-06 15:35] LABS: Add Manual Diff / Slide Review NO; Basophils Absolute Auto 0 /uL (0-100); Basophils Percent Auto 0.2 % (0-2); Eosinophils Absolute Auto 200 /uL (0-450); Eosinophils Percent Auto 2.4 % (2-4); Hematocrit 38.8 % (36-46); Hemoglobin 13.3 g/dL (12.0-16.0); Lymphocytes Absolute Auto 2100 /uL (1100-4500); Lymphocytes Percent Auto 22.9 % (25-40); Mean Corpuscular HGB Conc 34.2 % (30-36); Mean Corpuscular Hemoglobin 30.4 PG (26-34); Monocytes Absolute Auto 1000 /uL (0-900); Monocytes Percent Auto 10.5 % (3-14); Neutrophils Absolute Auto 5900 /uL (1500-7000); Platelet Count 324 X10^3/uL (150-400); Red Blood Cell Count 4.36 X10^6/uL (4.0-5.2); Red Cell Distribution Width 12.9 % (11.6-14.8); White Blood Cell Count 9.3 X10^3/uL (4.5-11.0)
[2020-02-06 15:50] LABS: Appearance Urine UA CLEAR; Bilirubin Urine UA NEGATIVE (NEGATIVE); Color Urine UA YELLOW; Glucose Urine UA NEGATIVE (Negative); Ketones Urine UA 1+ (NEGATIVE); Leukocyte Esterase Urine UA TRACE (NEGATIVE); Nitrite Urine UA NEGATIVE (Negative); Occult Blood Urine UA 1+ (Negative); Protein Urine UA NEGATIVE (Negative); Specific Gravity Urine UA >=1.030 (1.000-1.035); Urobilinogen Urine UA 0.2 E.U./dL (0.2)
[2020-02-06 15:55] LABS: RBC Urine 1-5/HPF (0-5/HPF); Squamous Epithelial Cell Urine 0-1 /HPF (0-5/HPF); Transitional Epi Cells Urine 0-1/HPF (0-5/HPF); WBC Urine 0-1/HPF (0-5/HPF)
[2020-02-06 15:56] LABS: Bacteria Urine Occasional (0-1); Culture Indicated Urine Cult Not Indicated; Mucus Urine 2+ (Negative)
[2020-02-06 17:09] LABS: Thyroid Stimulating Hormone 2.42 uIU/mL (0.47-4.68)
== END ==
PROVIDERS: PCP Nurse Practitioner Family; Referring Provider Nurse Practitioner Family; Visit Provider Nurse Practitioner Family
DX: R31.29 Other microscopic hematuria (principal); E03.9 Hypothyroidism, unspecified; D72.829 Elevated white blood cell count, unspecified; K57.92 Diverticulitis of intestine, part unspecified, without perforation or abscess without bleeding
CPT/HCPCS: 36415; 81001; 84443; 85025

== ENCOUNTER → 2020-02-23 08:13 | Outpatient (CLI) | payer MEDICARE, SELFPAY ==
[2020-02-23 08:50] LABS: Bacteria Urine None Seen; RBC Urine None Seen (0-5/HPF); WBC Urine None Seen (0-5/HPF)
[2020-02-23 09:05] LABS: Appearance Urine UA CLEAR; Bilirubin Urine UA NEGATIVE (NEGATIVE); Color Urine UA YELLOW; Glucose Urine UA NEGATIVE (Negative); Ketones Urine UA NEGATIVE (NEGATIVE); Leukocyte Esterase Urine UA NEGATIVE (NEGATIVE); Nitrite Urine UA NEGATIVE (Negative); Occult Blood Urine UA TRACE-LYSED (Negative); Protein Urine UA NEGATIVE (Negative); Specific Gravity Urine UA <=1.005 (1.000-1.035); Urobilinogen Urine UA 0.2 E.U./dL (0.2)
[2020-02-23 09:19] LABS: Culture Indicated Urine Cult Not Indicated; Urine Comments Microscopic Normal
== END ==
PROVIDERS: PCP Nurse Practitioner Family; Referring Provider Nurse Practitioner Family; Visit Provider Nurse Practitioner Family
DX: R31.29 Other microscopic hematuria (principal)
CPT/HCPCS: 81001

== ENCOUNTER → 2020-03-04 14:42 | Outpatient (CLI) | payer MEDICARE, SELFPAY ==
--- NOTE | 2020-03-04 14:45 | DI.MG.S_ITS ---
BILATERAL DIGITAL SCREENING MAMMOGRAM 3D/2D WITH CAD: 03/04/2020 CLINICAL: Routine screening. Family history of breast cancer. Comparison is made to exams dated: 01/15/2019 mammogram, 01/11/2018 mammogram, 12/26/2017 mammogram, and 12/14/2016 mammogram - [facility]. There are scattered fibroglandular elements in both breasts. Current study was also evaluated with a Computer Aided Detection (CAD) system. No significant masses, calcifications, or other findings are seen in either breast. There has been no significant interval change. IMPRESSION: NEGATIVE There is no mammographic evidence of malignancy. A 1 year screening mammogram is recommended. This exam was interpreted at Station ID: [id number]. NOTE: For mammograms, a report in lay terms will be sent to the patient. Approximately 15% of breast malignancies will not be visualized mammographically. In the management of a palpable breast mass, a negative mammogram must not discourage biopsy of a clinically suspicious lesion. Electronically Signed By: Saman horvath/heidi:03/04/2020 16:35:01 letter sent: Normal Exam ACR BI-RADS Category 1: Negative 3341F
== END ==
PROVIDERS: PCP Nurse Practitioner Family; Referring Provider Nurse Practitioner Family; Visit Provider Nurse Practitioner Family
DX: Z12.31 Encounter for screening mammogram for malignant neoplasm of breast (principal); Z80.3 Family history of malignant neoplasm of breast
CPT/HCPCS: 77063; 77067

== ENCOUNTER → 2020-05-30 07:37 | Outpatient (CLI) | payer MEDICARE, SELFPAY ==
[2020-05-30 07:52] LABS: RBC Urine None Seen (0-5/HPF)
[2020-05-30 10:31] LABS: Appearance Urine UA CLEAR; Bilirubin Urine UA NEGATIVE (NEGATIVE); Color Urine UA YELLOW; Glucose Urine UA NEGATIVE (Negative); Ketones Urine UA NEGATIVE (NEGATIVE); Leukocyte Esterase Urine UA NEGATIVE (NEGATIVE); Nitrite Urine UA NEGATIVE (Negative); Occult Blood Urine UA TRACE-LYSED (Negative); Protein Urine UA NEGATIVE (Negative); Specific Gravity Urine UA 1.015 (1.000-1.035); Urobilinogen Urine UA 0.2 E.U./dL (0.2)
[2020-05-30 11:27] LABS: Renal Epithelial Cells Urine 0-1/HPF (0-1/HPF); Squamous Epithelial Cell Urine 1-5 /HPF (0-5/HPF); WBC Urine 0-1/HPF (0-5/HPF)
[2020-05-30 11:28] LABS: Bacteria Urine Occasional (0-1); Culture Indicated Urine Cult Not Indicated
== END ==
PROVIDERS: PCP Nurse Practitioner Family; Referring Provider Nurse Practitioner Family; Visit Provider Nurse Practitioner Family
DX: R31.29 Other microscopic hematuria (principal)
CPT/HCPCS: 81001

== ENCOUNTER → 2020-08-13 07:19 | Outpatient (CLI) | payer MEDICARE, SELFPAY ==
[2020-08-13 08:10] LABS: Alanine Aminotransferase 20 IU/L (<35); Albumin 4.6 g/dL (3.5-5.0); Albumin Globulin Ratio 1.5 (1.0-2.8); Alkaline Phosphatase 61 U/L (38-126); Aspartate Aminotransferase 42 IU/L (14-36); BUN Creatinine Ratio 16.9 (6-22); Bilirubin Total 0.4 mg/dL (0.2-1.3); Blood Urea Nitrogen 10 mg/dL (7-17); Calcium 9.8 mg/dL (8.4-10.2); Carbon Dioxide 30 mmol/L (22-32); Chloride 102 mmol/L (98-107); Cholesterol 192 mg/dL (140-199); Estimated Glomerular Filt Rate > 60.0 mL/min (>60); Globulin 3.1 g/dL (1.7-4.1); Glucose 97 mg/dL (80-110); HDL Cholesterol 60 mg/dL (40-60); HEMOLYSIS < 15 (0-50); LDL Cholesterol Calculated 95 mg/dL (<100); Potassium 4.1 mmol/L (3.4-5.1); Sodium 137 mmol/L (137-145); Total Protein 7.7 g/dL (6.3-8.2); Triglycerides 187 mg/dL (35-150)
[2020-08-13 08:39] LABS: Thyroid Stimulating Hormone 4.23 uIU/mL (0.47-4.68)
== END ==
PROVIDERS: PCP Nurse Practitioner Family; Referring Provider Nurse Practitioner Family; Visit Provider Nurse Practitioner Family
DX: E03.9 Hypothyroidism, unspecified (principal)
CPT/HCPCS: 36415; 80053; 80061; 84443

== ENCOUNTER → 2020-08-18 12:58 | Outpatient (CLI) | payer MEDICARE, SELFPAY | PROVIDERS: PCP Nurse Practitioner Family; Referring Provider Nurse Practitioner Family; Visit Provider Nurse Practitioner Family | DX: Z13.820 Encounter for screening for osteoporosis (principal); M85.88 Other specified disorders of bone density and structure, other site; Z78.0 Asymptomatic menopausal state; E07.9 Disorder of thyroid, unspecified; Z82.62 Family history of osteoporosis | CPT/HCPCS: 77080 ==

== ENCOUNTER → 2021-01-28 08:35 | Outpatient (CLI) | payer MEDICARE, SELFPAY ==
[2021-01-28 10:37] LABS: COVID19 -Nasal RAPID Negative (Negative)
== END ==
PROVIDERS: PCP Nurse Practitioner Family; Visit Provider Surgery
DX: Z20.822 Contact with and (suspected) exposure to COVID-19 (principal)
CPT/HCPCS: 87635; C9803

== ENCOUNTER 2021-01-29 12:18 | Day surgery (SDC) | payer MEDICARE, SELFPAY ==
[2021-01-29] VITALS (12 sets, daily range): BP systolic 88–111; BP diastolic 48–74; PULSE 60–89; RESP 12–18; TEMP 36.1–36.9; O2SAT 95–99; BMI 24.1
[2021-01-29] MEDS: LACTATED RINGERS 1,000 ML 200 ML IV ×2 (12:56→15:13)
--- NOTE | 2021-01-29 13:24 | SUR.PREOP ---
Dr Orellana notified in Endo suite of patient nausea after IV start/attempt. See new order for zofran 4mg IV.
[2021-01-29] MEDS: ONDANSETRON 4 MG/2 ML INJ IV (13:38)
--- NOTE | 2021-01-29 14:21 | PM.HP.1 ---
History of Present Illness History of Present Illness Date Patient Seen: 01/29/21 Time Patient Seen: 14:21 Chief complaint: SCREENING COLONOSCOPY Narrative: The patient presents for colorectal sreening. Last colonoscopy 11 years ago normal. One year ago had an episode of uncomplicated diverticulitis. No personal or family history of colon cancer. On further history denies any recent gastrointestinal symptoms. No nausea, vomiting, abdominal pain, loss of appetite, unexplained weight loss, change in bowel habits, diarrhea, constipation, melena, hematochezia, or bright red blood per rectum. Patient History Medical History Actinic keratosis (2008) Ankle pain (2014) Chickenpox (1956) Elevated white blood cell count Foot pain (2014) Fractures (1963) Hypercholesterolemia (Unknown) Hyperlipemia (~1989) Hypothyroidism (~1999) Impacted cerumen, bilateral Measles (1957) Microscopic hematuria Mixed hyperlipidemia Mumps (~1949) Osteopenia after menopause Rosacea (Unknown) Rubella (~1949) Screening for malignant neoplasm of breast Screening for malignant neoplasm of colon Surgical History History of shoulder surgery (1987) History of tonsillectomy Family & Social History Family History Father Heart disease High cholesterol Grandmother Diabetes mellitus Mother Hypertension Grandfather Stroke Grandfather Cancer Grandmother No problems noted. Other Family history of cardiovascular disease Social History: household members spouse Tobacco & Substance use: Smoking Status Never smoker alcohol intake never Substance Use Type does not use Meds Home Medications and Allergies Home Medications Medication Instructions Recorded Confirmed Type metronidazole 1 % topical gel 0.075 % TOPICAL PRN #0 11/10/16 01/29/21 History (Metrogel) aspirin 81 mg tablet,delayed 81 mg PO DAILY 02/06/20 01/29/21 History release (Adult Aspirin Regimen) atorvastatin 10 mg tablet (Lipitor) 10 mg PO HS #90 tab 09/18/20 01/29/21 Rx levothyroxine 75 mcg tablet 75 mcg PO DAILY #90 tab 09/22/20 Rx raloxifene 60 mg tablet 60 mg PO DAILY #90 tab 09/22/20 01/29/21 Rx levothyroxine 75 mcg tablet 75 mcg 01/29/21 History Allergies Allergy/AdvReac Type Severity Reaction Status Date / Time tetracycline [TETRACYCLINE] Allergy Severe n/v Verified 01/29/21 12:43 Sulfa (Sulfonamide Allergy Unknown rash Verified 01/29/21 12:43 Antibiotics) [SULFA (SULFONAMIDE ANTIBIOTICS)] Review of Systems Review of Systems ROS: Yes All systems reviewed with the patient and are negative except as otherwise documented Exam Vital Signs (past 8 hours): - 01/29/21 12:47 Temperature 98.4 F Pulse Rate 89 Respiratory Rate 18 Blood Pressure 111/74 Oxygen Delivery Method Room Air Narrative Exam Narrative: GENERAL-well developed elderly woman, no acute distress HEENT-no scleral icterus, hearing intact NECK-no JVD, trachea midline CVS- regular rate, no peripheral edema RESP-unlabored respiratory effort, no audible wheezing GI-soft, nontender nondistended MSK-no cyanosis or clubbing, extremities without deformity SKIN-warm, dry NEURO-alert and oriented, no focal deficits PYSCH-Appropriate mood and affect Assessment & Plan Assessment & Plan narrative: The patient requires colorectal screening and colonoscopy is recommended. Technical details were discussed. Risks, benefits, alternatives explained. Risks including but not limited to myocardial infarction, aspiration, bleeding, pain, missed lesion, incomplete examination, need for further radiographic studies, colonic perforation, and need for major abdominal surgery were discussed. All questions were answered to their satisfaction, and they are in agreement with this plan.
[2021-01-29] MEDS: MIDAZOLAM 5 MG/5 ML VIAL IV (14:26)
[2021-01-29] MEDS: fentaNYL 250 MCG/5 ML INJ IV (14:26)
--- NOTE | 2021-01-29 14:48 | PM.OP.ENDO ---
Operative Date/Time/Diagnoses Date of procedure: 01/29/21 Time of procedure: 14:49 Pre-op diagnosis: Screening colonoscopy Post-op diagnosis: same Procedure & Clinicians Study performed: Colonoscopy Same procedure as scheduled: Yes Indications: Screening Surgeon: Gary Orellana Procedure Notes Procedure in detail: Medications: Conscious sedation using 5mg IV midazolam and 125mcg IV of fentanyl The history and physical was performed/updated and the patient is ASA class is 2. The procedure was discussed in detail with the patient. Potential risks complications including infection, bleeding, missed diagnosis, perforation, need for surgery, and were explained. Their questions were answered and informed consent was obtained. Patient was brought to the procedure room and placed standard monitoring equipment. The patient's vital signs were monitored continuously throughout the entire procedure. Prior to starting time-out was performed. The patient was placed in the left lateral recumbent position. Procedural sedation was administered. Examination began with a thorough inspection of the perianal area there was no evidence of fissures, fistulae, external hemorrhoids or cutaneous malignancy. The colonoscopy scope was then placed into the anal canal and was advanced to the cecum, which was identified by the ileocecal valve, the appendiceal orifice and the confluence of the taenia. The scope was then slowly withdrawn examining colon thoroughly in all directions, irrigating it of any residual stool. 1. No masses or polyps 2. Sigmoid diverticulosis The patient tolerated the procedure well. They will be discharged once criteria are met. The prep was of good/excellent quality. The withdrawl time was 7 minutes. The sedation time was 32 minutes. Specimen(s): none sent Complications: none Impression: Normal colonoscopy Post-procedure Recommendations: Colonscopy in 10 years Disposition: same day surgery
== END 2021-01-29 16:10 | disposition home or self-care (01) ==
PROVIDERS: PCP Nurse Practitioner Family; Referring Provider Surgery; Visit Provider Surgery
PROC: 0DJD8ZZ Inspection of Lower Intestinal Tract, Via Natural or Artificial Opening Endoscopic (ICD-10-PCS; CPT 45378; principal; 2021-01-29 13:45)
DX: Z12.11 Encounter for screening for malignant neoplasm of colon (principal); K57.30 Diverticulosis of large intestine without perforation or abscess without bleeding
CPT/HCPCS: G0121; 99152; 99153; J2250; J2405; J3010

== ENCOUNTER → 2021-02-25 09:13 | Outpatient (CLI) | payer MEDICARE, SELFPAY ==
[2021-02-25 11:30] LABS: Hematocrit 41.8 % (36-46); Hemoglobin 14.1 g/dL (12.0-16.0); Mean Corpuscular HGB Conc 33.8 % (30-36); Mean Corpuscular Hemoglobin 30.1 PG (26-34); Mean Corpuscular Volume 88.9 fL (80-100); Platelet Count 273 X10^3/uL (150-400); Red Cell Distribution Width 12.9 % (11.6-14.8); White Blood Cell Count 7.6 X10^3/uL (4.5-11.0)
[2021-02-25 11:48] LABS: Alanine Aminotransferase 20 IU/L (<35); Albumin 4.5 g/dL (3.5-5.0); Albumin Globulin Ratio 1.5 (1.0-2.8); Alkaline Phosphatase 69 U/L (38-126); Aspartate Aminotransferase 43 IU/L (14-36); BUN Creatinine Ratio 18.6 (6-22); Bilirubin Total 0.4 mg/dL (0.2-1.3); Blood Urea Nitrogen 11 mg/dL (7-17); Calcium 9.8 mg/dL (8.4-10.2); Carbon Dioxide 30 mmol/L (22-32); Chloride 99 mmol/L (98-107); Estimated Glomerular Filt Rate > 60.0 mL/min (>60); Glucose 85 mg/dL (80-110); HEMOLYSIS < 15 (0-50); Potassium 4.2 mmol/L (3.4-5.1); Sodium 134 mmol/L (137-145); Total Protein 7.5 g/dL (6.3-8.2)
[2021-02-25 12:02] LABS: Free T4, Direct Thyroxine 1.28 ng/dL (0.78-2.19)
[2021-02-25 12:16] LABS: Thyroid Stimulating Hormone 1.42 uIU/mL (0.47-4.68)
== END ==
PROVIDERS: PCP Nurse Practitioner Family; Referring Provider Nurse Practitioner Family; Visit Provider Nurse Practitioner Family
DX: E03.9 Hypothyroidism, unspecified (principal); Z00.00 Encounter for general adult medical examination without abnormal findings
CPT/HCPCS: 36415; 80053; 84439; 84443; 85027

== ENCOUNTER → 2021-03-27 14:49 | Outpatient (CLI) | payer MEDICARE, SELFPAY ==
--- NOTE | 2021-03-27 14:50 | DI.MG.S_ITS ---
BILATERAL DIGITAL SCREENING MAMMOGRAM 3D/2D WITH CAD: 03/27/2021 CLINICAL: Routine screening. Family history of breast cancer. Comparison is made to exams dated: 03/04/2020 mammogram, 01/15/2019 mammogram, and 12/26/2017 mammogram - [facility]. There are scattered fibroglandular elements in both breasts. Current study was also evaluated with a Computer Aided Detection (CAD) system. No significant masses, calcifications, or other findings are seen in either breast. There has been no significant interval change. IMPRESSION: NEGATIVE There is no mammographic evidence of malignancy. A 1 year screening mammogram is recommended. This exam was interpreted at Station ID: [id number]. NOTE: For mammograms, a report in lay terms will be sent to the patient. Approximately 15% of breast malignancies will not be visualized mammographically. In the management of a palpable breast mass, a negative mammogram must not discourage biopsy of a clinically suspicious lesion. Electronically Signed By: Mercedes zafar/heidi:03/27/2021 18:18:54 letter sent: Normal Exam ACR BI-RADS Category 1: Negative [id number]
== END ==
PROVIDERS: PCP Nurse Practitioner Family; Referring Provider Nurse Practitioner Family; Visit Provider Nurse Practitioner Family
DX: Z12.31 Encounter for screening mammogram for malignant neoplasm of breast (principal); Z80.3 Family history of malignant neoplasm of breast
CPT/HCPCS: 77063; 77067

== ENCOUNTER 2022-01-17 21:02 | Emergency (ER) | payer MEDICARE, SELFPAY ==
[2022-01-17 21:15] VITALS: BP 134/82; PULSE 94; RESP 16; TEMP 37.7; O2SAT 98; BMI 25.6
[2022-01-17 21:46] LABS: COVID19 -Nasal RAPID Negative (Negative)
--- NOTE | 2022-01-17 23:03 | ED_ITS ---
HPI - Abdominal Pain General Chief Complaint: Abdominal Pain Stated Complaint: pain/feels like diverticulitis x1 day Time Seen by Provider: 01/17/22 22:40 Source: patient Mode of arrival: Ambulatory History of Present Illness HPI narrative: 71-year-old female nonsmoker with history of hypothyroid and particular his presents with a friend and a chief complaint of some left lower quadrant pain over the course of the day. She states the pain is worse when she moves and improves with rest. She denies any obvious radiation. She has had no vomiting but has been nauseated. She denies any constipation or diarrhea and has no dysuria, frequency or urgency. She denies any fever or chills. She has had diverticulitis in the past and states this feels quite similar. Related Data Home Medications Medication Instructions Recorded Confirmed metronidazole 1 % topical gel 0.075 % topical PRN ##0 11/10/16 11/24/21 (Metrogel) aspirin 81 mg tablet,delayed 81 mg PO DAILY 02/06/20 11/24/21 release (Adult Aspirin Regimen) ketoconazole 2 % topical cream 1 applic topical DAILY PRN 11/24/21 11/24/21 Previous Rx's Medication Instructions Recorded atorvastatin 10 mg tablet (Lipitor) 10 mg PO HS #90 tabs 03/04/21 levothyroxine 75 mcg tablet 75 mcg PO DAILY #90 tabs 03/04/21 raloxifene 60 mg tablet See Rx Instructions .Route 11/24/21 .COMPLEX #90 tabs Allergies Allergy/AdvReac Type Severity Reaction Status Date / Time tetracycline [TETRACYCLINE] Allergy Severe n/v Verified 02/25/21 08:51 Sulfa (Sulfonamide Allergy Unknown rash Verified 02/25/21 08:51 Antibiotics) [SULFA (SULFONAMIDE ANTIBIOTICS)] Review of Systems Review of Systems Narrative: GENERAL: Denies chills, fatigue, malaise, fever, sweats. HEENT: Denies sinus pain, ear pain, sore throat, difficulty swallowing, dizziness. RESPIRATORY: Denies dyspnea, cough, wheezing, hemoptysis, sputum. CARDIOVASCULAR: Denies chest pain, palpitations, orthopnea, edema, GASTROINTESTINAL: See HPI : Denies dysuria, frequency, incontinence, hematuria, urinary retention. MUSCULOSKELETAL: denies weakness, joint pain, or bony pain SKIN: Denies rash, skin lesions, or other NEUROLOGIC: Denies weakness, headache, numbness, change in speech, confusion, seizures, incoordination. PSYCHIATRIC: No concerning psychosocial issues. 12 point review of systems is negative except for those stated above Patient History Medical History Actinic keratosis (2009) Ankle pain (2014) Atypical ductal hyperplasia of breast Basal cell carcinoma Bunion of great toe of right foot Chickenpox (1956) Elevated white blood cell count Foot pain (2014) Fractures (1963) Hypercholesterolemia (Unknown) Hyperlipemia (~1989) Hypothyroidism (~1999) Impacted cerumen, bilateral Measles (1957) Microscopic hematuria Mixed hyperlipidemia Mumps (~1949) Osteopenia after menopause Rosacea (Unknown) Rubella (~1949) Screening for malignant neoplasm of breast Screening for malignant neoplasm of colon Surgical History History of shoulder surgery (1987) History of tonsillectomy Family History Father Heart disease High cholesterol Grandmother Diabetes mellitus Mother Hypertension Grandfather Stroke Grandfather Cancer Grandmother No problems noted. Other Family history of cardiovascular disease Social History household members: spouse Smoking Status: Never smoker second hand exposure: No alcohol intake: never substance use type: does not use Smoking Status: Never smoker Substance Use Type: does not use Exam Narrative Exam Narrative: GENERAL: [71] year old patient appears stated age. Well-developed patient, in mild distress. HEAD: Atraumatic. Normocephalic. EYES: Pupils equal round and reactive. Extraocular motions intact. No scleral icterus. No injection or drainage. ENT: Nose without bleeding, purulent drainage. Throat without erythema, tonsillar hypertrophy or exudate. Airway patent. NECK: Trachea midline. Non tender CARDIOVASCULAR: Regular rate and rhythm without murmurs, gallops, or rubs. RESPIRATORY: Clear to auscultation. Breath sounds equal bilaterally. No wheezes, rales, or rhonchi. GASTROINTESTINAL: Abdomen soft, minimally tender in the left lower quadrant, no rebound, nondistended. Bowel sounds noted in all 4 quadrants EXTREMITIES: No edema or joint tenderness. BACK: Nontender without deformity or crepitance. No flank tenderness. NEURO: AOx3. SKIN: No rash or erythema of visible areas Initial Vital Signs Initial Vital Signs: Vital Signs Temperature 99.9 F H 01/17/22 21:15 Pulse Rate 94 H 01/17/22 21:15 Respiratory Rate 16 01/17/22 21:15 Blood Pressure 134/82 01/17/22 21:15 Pulse Oximetry 98 01/17/22 21:15 Oxygen Delivery Method 01/17/22 21:15 Course Orders Ordered: ED Orders 01/17/22 23:30 Complete Blood Count AUTO DIFF Stat Comprehensive Metabolic Panel Stat Lipase Stat 01/18/22 00:46 XR acute abdomen series Stat Discontinued Medications Sodium Chloride (Normal Saline 0.9%) 500 mls @ 1,000 mls/hr IV BOLUS ONE Stop: 01/18/22 00:23 Last Infusion: 01/18/22 01:21 Dose: 0 mls/hr Documented By: Admin: 01/18/22 00:04 Dose: 1,000 mls/hr Documented By: NR Levofloxacin (Levofloxacin 250 Mg Tablet) 500 mg PO NOW ONE Stop: 01/17/22 23:59 Last Admin: 01/18/22 00:04 Dose: 500 mg Documented By: NR Metronidazole (Metronidazole 500 Mg Tablet) 500 mg PO NOW ONE Stop: 01/17/22 23:59 Last Admin: 01/18/22 00:04 Dose: 500 mg Documented By: NR Ondansetron HCl (Ondansetron 4 Mg/2 Ml Inj) 4 mg IV NOW ONE Stop: 01/17/22 23:59 Last Admin: 01/18/22 00:04 Dose: 4 mg Documented By: NR Vital Signs Vital signs: Vital Signs - 8 hr 01/17/22 21:15 Temperature 99.9 F H Pulse Rate 94 H Respiratory Rate 16 Blood Pressure 134/82 Pulse Oximetry 98 Oxygen Delivery Method Room Air MDM - Abdominal Pain Lab Data Result diagrams: 01/17/22 23:30 01/17/22 23:30 Labs: Lab Results 01/17/22 01/17/22 01/17/22 Range/Units 21:20 23:30 23:30 WBC 15.6 H (4.5-11.0) X10^3/uL RBC 4.47 (4.0-5.2) X10^6/uL Hgb 13.2 (12.0-16.0) g/dL Hct 39.1 (36-46) % MCV 87.5 (80-100) fL MCH 29.6 (26-34) PG MCHC 33.9 (30-36) % RDW 13.3 (11.6-14.8) % Plt Count 265 (150-400) X10^3/uL Neut % (Auto) 73.9 (50-75) % Lymph % (Auto) 15.7 L (25-40) % [place] % (Auto) 9.5 (3-14) % Eos % (Auto) 0.7 L (2-4) % Baso % (Auto) 0.2 (0-2) % Neut # (Auto) 21155 H (1906-0092) /uL Lymph # (Auto) 2400 (0691-2296) /uL [place] # (Auto) 1500 H (0-900) /uL Eos # (Auto) 100 (0-450) /uL Baso # (Auto) 0 (0-100) /uL Sodium 131 L (137-145) mmol/L Potassium 4.1 (3.4-5.1) mmol/L Chloride 97 L (98-107) mmol/L Carbon Dioxide 27 (22-32) mmol/L BUN 11 (7-17) mg/dL Creatinine 0.61 (0.52-1.04) mg/dL Estimated GFR > 60 (>60) mL/min BUN/Creatinine Ratio 18.0 (6-22) Glucose 108 (80-110) mg/dL Calcium 9.2 (8.4-10.2) mg/dL Total Bilirubin 0.8 (0.2-1.3) mg/dL AST 40 H (14-36) IU/L ALT 19 (<35) IU/L Alkaline Phosphatase 67 (38-126) U/L Total Protein 7.5 (6.3-8.2) g/dL Albumin 4.4 (3.5-5.0) g/dL Globulin 3.1 (1.7-4.1) g/dL Albumin/Globulin Ratio 1.4 (1.0-2.8) Lipase 61 (23-300) U/L SARS-CoV-2 (PCR) Negative (Negative) Imaging Data Abdominal x-ray: Radiologist's Impression: [address] [address] XRay Report Signed Patient: Mariya Cárdenas MR#: [id number] : 1950 Acct:[id number] Age/Sex: 71 / F Date of Service: 01/18/22 Loc: ED Accession Number: [id number] ?? Procedure: XR acute abdomen series Ordering Provider: Celestine Mistry D.O. PROCEDURE:? XR ACUTE ABDOMEN SERIES ? INDICATIONS:? abd pain ? TECHNIQUE:? One view chest and two views of the abdomen were acquired.? ? COMPARISON:? None. ? FINDINGS:? ? Surgical changes and devices:? None.? ? Chest:? Lungs are clear.? Heart size is normal.? No pleural effusions.? No pneumoperitoneum.? ? Abdomen:? Bowel gas pattern is within normal limits.? No suspicious calcifications.? ? Bones:? No suspicious bony lesions.? ? IMPRESSION:? ? 1. Bowel gas pattern within normal limits. ? ? Dictated by: Gene Mack M.D. on 01/18/2022 at 2:01 ? ? Approved by: Gene Mack M.D. on 01/18/2022 at 2:02 ? MDM Narrative Medical decision making narrative: Multiple etiologies for patient's symptoms considered include, but not limited to: [Bowel obstruction versus diverticulitis versus other Patient's symptoms improved over duration of stay with above-stated therapies. History, physical exam, labs, imaging, and response to therapies have been reass uring. We discussed the utility of advanced imaging but sure the opinion that given her relatively classic presentation and benign exam that it is not needed at this time Findings and discharge diagnosis discussed with patient/family followed by verbalization of understanding Return precautions discussed with patient/family whom verbalize understanding. Pain has been well controlled and patient is tolerating oral hydration. Discharge Plan Departure Patient Disposition: Home Clinical Impression: Diverticulitis Prescriptions: No Action metronidazole [Metrogel] 1 % gel 0.075 % Topical PRN Qty: 0 atorvastatin [Lipitor] 10 mg tablet 10 mg PO HS Qty: 90 3RF levothyroxine 75 mcg tablet 75 mcg PO DAILY Qty: 90 3RF aspirin [Adult Aspirin Regimen] 81 mg tablet,delayed release (DR/EC) 81 mg PO DAILY ketoconazole 2 % cream 1 applic topical DAILY PRN Label Comments: 15 gram tube raloxifene 60 mg tablet See Rx Instructions .ROUTE .COMPLEX Qty: 90 1RF Dose Instruction: TAKE 1 TABLET BY MOUTH DAILY Rx Instructions: TAKE 1 TABLET BY MOUTH DAILY Referrals: Adam Zelaya ARNP [Primary Care Provider] - Visit Report Forms: Patient Portal/API
[2022-01-17 23:41] LABS: Add Manual Diff / Slide Review NO; Basophils Absolute Auto 0 /uL (0-100); Basophils Percent Auto 0.2 % (0-2); Eosinophils Absolute Auto 100 /uL (0-450); Eosinophils Percent Auto 0.7 % (2-4); Hematocrit 39.1 % (36-46); Hemoglobin 13.2 g/dL (12.0-16.0); Lymphocytes Absolute Auto 2400 /uL (1100-4500); Lymphocytes Percent Auto 15.7 % (25-40); Mean Corpuscular HGB Conc 33.9 % (30-36); Mean Corpuscular Hemoglobin 29.6 PG (26-34); Mean Corpuscular Volume 87.5 fL (80-100); Monocytes Absolute Auto 1500 /uL (0-900); Monocytes Percent Auto 9.5 % (3-14); Neutrophils Absolute Auto 11500 /uL (1500-7000); Neutrophils Percent Auto 73.9 % (50-75); Platelet Count 265 X10^3/uL (150-400); Red Blood Cell Count 4.47 X10^6/uL (4.0-5.2); Red Cell Distribution Width 13.3 % (11.6-14.8); White Blood Cell Count 15.6 X10^3/uL (4.5-11.0)
[2022-01-17 23:55] LABS: Alanine Aminotransferase 19 IU/L (<35); Albumin 4.4 g/dL (3.5-5.0); Albumin Globulin Ratio 1.4 (1.0-2.8); Alkaline Phosphatase 67 U/L (38-126); Aspartate Aminotransferase 40 IU/L (14-36); Bilirubin Total 0.8 mg/dL (0.2-1.3); Blood Urea Nitrogen 11 mg/dL (7-17); Calcium 9.2 mg/dL (8.4-10.2); Carbon Dioxide 27 mmol/L (22-32); Chloride 97 mmol/L (98-107); Estimated Glomerular Filt Rate > 60 mL/min (>60); Globulin 3.1 g/dL (1.7-4.1); Glucose 108 mg/dL (80-110); HEMOLYSIS 16 (0-50); Lipase 61 U/L (23-300); Potassium 4.1 mmol/L (3.4-5.1); Sodium 131 mmol/L (137-145); Total Protein 7.5 g/dL (6.3-8.2)
[2022-01-18] MEDS: levoFLOXacin 250 MG TABLET 500 MG PO (00:04)
[2022-01-18] MEDS: metroNIDAZOLE 500 MG TABLET PO (00:04)
[2022-01-18] MEDS: ONDANSETRON 4 MG/2 ML INJ IV (00:04)
[2022-01-18] MEDS: SODIUM CHLORIDE 0.9% 500 ML 1000 ML IV (00:04)
--- NOTE | 2022-01-18 00:46 | DI.RAD.S_ITS ---
PROCEDURE: XR ACUTE ABDOMEN SERIES INDICATIONS: abd pain TECHNIQUE: One view chest and two views of the abdomen were acquired. COMPARISON: None. FINDINGS: Surgical changes and devices: None. Chest: Lungs are clear. Heart size is normal. No pleural effusions. No pneumoperitoneum. Abdomen: Bowel gas pattern is within normal limits. No suspicious calcifications. Bones: No suspicious bony lesions. IMPRESSION: 1. Bowel gas pattern within normal limits. Dictated by: Gene Mack M.D. on 01/18/2022 at 2:01 Approved by: Gene Mack M.D. on 01/18/2022 at 2:02
== END 2022-01-18 01:15 | disposition home or self-care (01) ==
PROVIDERS: Emergency Provider Emergency Medicine; PCP Registered Nurse Diabetes Educator
DX: K57.92 Diverticulitis of intestine, part unspecified, without perforation or abscess without bleeding (principal); Z20.822 Contact with and (suspected) exposure to COVID-19
CPT/HCPCS: 36415; 74022; 80053; 83690; 85025; 87635; 99284; C9803; J2405

== ENCOUNTER → 2022-02-18 07:19 | Outpatient (CLI) | payer MEDICARE, SELFPAY ==
[2022-02-18 08:54] LABS: Hemoglobin 13.8 g/dL (12.0-16.0); Mean Corpuscular HGB Conc 33.7 % (30-36); Mean Corpuscular Hemoglobin 29.7 PG (26-34); Platelet Count 266 X10^3/uL (150-400); Red Blood Cell Count 4.66 X10^6/uL (4.0-5.2); Red Cell Distribution Width 13.5 % (11.6-14.8); White Blood Cell Count 7.1 X10^3/uL (4.5-11.0)
[2022-02-18 09:47] LABS: Alanine Aminotransferase 23 IU/L (<35); Albumin 4.5 g/dL (3.5-5.0); Albumin Globulin Ratio 1.7 (1.0-2.8); Alkaline Phosphatase 58 U/L (38-126); Aspartate Aminotransferase 39 IU/L (14-36); Bilirubin Total 0.6 mg/dL (0.2-1.3); Blood Urea Nitrogen 12 mg/dL (7-17); Calcium 9.6 mg/dL (8.4-10.2); Carbon Dioxide 27 mmol/L (22-32); Chloride 101 mmol/L (98-107); Cholesterol 228 mg/dL (140-199); Globulin 2.6 g/dL (1.7-4.1); Glucose 96 mg/dL (80-110); HDL Cholesterol 73 mg/dL (40-60); HEMOLYSIS < 15 (0-50); LDL Cholesterol Calculated 110 mg/dL (<100); Potassium 4.1 mmol/L (3.4-5.1); Sodium 138 mmol/L (137-145); Total Protein 7.1 g/dL (6.3-8.2); Triglycerides 226 mg/dL (35-150)
[2022-02-18 09:48] LABS: BUN Creatinine Ratio 20.7 (6-22); Estimated Glomerular Filt Rate > 60 mL/min (>60)
[2022-02-18 10:19] LABS: TSH w/ Reflex to FT4 1.29 uIU/mL (0.47-4.68)
== END ==
PROVIDERS: PCP Registered Nurse Diabetes Educator; Referring Provider Registered Nurse Diabetes Educator; Visit Provider Registered Nurse Diabetes Educator
DX: E03.9 Hypothyroidism, unspecified (principal); E78.2 Mixed hyperlipidemia; D72.829 Elevated white blood cell count, unspecified
CPT/HCPCS: 36415; 80053; 80061; 84443; 85027

== ENCOUNTER → 2022-03-03 06:41 | Outpatient (CLI) | payer MEDICARE, SELFPAY ==
--- NOTE | 2022-03-03 06:42 | DI.US.S_ITS ---
PROCEDURE: US ABDOMEN LIMITED INDICATIONS: ELEVATED AST TECHNIQUE: Real-time focused scanning was performed of the abdomen, with image documentation. COMPARISON: [facility], CT, CT ABDOMEN PELVIS W CON, 02/02/2020, 22:59. FINDINGS: The liver demonstrates normal size. The liver is mildly heterogeneous, yet without focal lesions seen. No findings of gallstones or sludge are seen. The gallbladder wall is not thickened, measuring 3 mm or less. No specific pericholecystic fluid is seen. The sonographic Lopez sign is negative. There is no biliary dilatation, the common bile duct measures 6 mm. No focal pancreatic lesion can be seen. The pancreatic duct is prominent at 5.1 mm, which is increased compared to the prior CT from 2019. IMPRESSION: No significant liver abnormality seen by ultrasound. Mildly dilated pancreatic duct at 5.1 mm. If clinically appropriate, an MRCP could be considered for further evaluation (assuming that there is no contraindication to MRI). Dictated by: Vitaliy Canales M.D. on 03/03/2022 at 8:50 Approved by: Vitaliy Canales M.D. on 03/03/2022 at 8:52
== END ==
PROVIDERS: PCP Registered Nurse Diabetes Educator; Referring Provider Registered Nurse Diabetes Educator; Visit Provider Registered Nurse Diabetes Educator
DX: K86.89 Other specified diseases of pancreas (principal); R74.8 Abnormal levels of other serum enzymes
CPT/HCPCS: 76705

== ENCOUNTER → 2022-03-26 10:34 | Outpatient (CLI) | payer MEDICARE, SELFPAY ==
--- NOTE | 2022-03-26 10:35 | DI.MRI.S_ITS ---
PROCEDURE: MR ABDOMEN WO/W CON INDICATIONS: further eval of dilated pancreatic duct TECHNIQUE: Coronal HASTE, axial 2D FLASH in- and [id number]; axial breath-hold T2 FSE with fat saturation from the hepatic dome to the iliac crests. Oblique coronal thin-slice and radial thick slab HASTE through the biliary system. Dynamic axial VIBE during administration of contrast. Post-contrast coronal VIBE or 2D FLASH with fat saturation from the hepatic dome to the iliac crests. Optional diffusion weighted imaging and ADC may be performed. COMPARISON: [facility], US, US ABDOMEN LIMITED, 03/03/2022, 7:09. [facility], CT, CT ABDOMEN PELVIS W CON, 02/02/2020, 22:59. FINDINGS: Image quality: Some motion degradation Pancreas and biliary system: MRCP images are limited by motion. However, on other sequences, CBD is seen to be mildly dilated at 8 mm. The pancreatic duct is also mildly dilated measuring 5-6 mm in the neck and proximal body. There also dilated side branches. Reassuringly, these findings appear stable compared to CT from 02/02/2020. On postcontrast images no enhancing masses identified. The pancreatic parenchyma is mild to moderately atrophied and there is heterogeneous loss of intrinsic T1 signal. Solid organs: Regional hepatic steatosis. No hypervascular liver lesion. Gallbladder is unremarkable. Spleen within normal limits. No adrenal nodules. Kidneys are unremarkable. Small cysts are present. Nodes and vessels: No aortic aneurysm. No pathologic adenopathy. Bowel and peritoneum: Nondilated. No ascites. Lung bases: Not well evaluated on MRI, no gross abnormality Bones and soft tissues: No suspicious or acute osseous finding. IMPRESSION: Stable mildly dilated pancreatic duct compared to 2019. Stability is reassuring. There are also dilated side branches. There is no focal cutoff point or mass identified. Atrophy of the pancreatic parenchyma, in combination with these findings, suggest prior chronic pancreatitis. Stable mildly dilated biliary tree also seen, consider ampullary/sphincter dysfunction. Regional hepatic steatosis. Dictated by: Jarrett Yuan M.D. on 03/26/2022 at 11:47 Approved by: Jarrett Yuan M.D. on 03/26/2022 at 11:56
== END ==
PROVIDERS: PCP Registered Nurse Diabetes Educator; Referring Provider Registered Nurse Diabetes Educator; Visit Provider Registered Nurse Diabetes Educator
DX: K86.89 Other specified diseases of pancreas (principal); K76.0 Fatty (change of) liver, not elsewhere classified
CPT/HCPCS: 74183

== ENCOUNTER → 2022-06-28 15:47 | Outpatient (CLI) | payer MEDICARE, SELFPAY ==
--- NOTE | 2022-06-28 15:48 | DI.MG.S_ITS ---
BILATERAL DIGITAL SCREENING MAMMOGRAM 3D/2D WITH CAD: 06/28/2022 CLINICAL: Routine screening. Family history of breast cancer. Comparison is made to exams dated: 03/27/2021 mammogram, 03/04/2020 mammogram, 01/15/2019 mammogram, 12/26/2017 mammogram, and 12/14/2016 mammogram - [facility]. There are scattered areas of fibroglandular density in both breasts (category b / 25%-50% glandular tissue). Current study was also evaluated with a Computer Aided Detection (CAD) system. There are benign calcifications in both breasts. There also are benign post operative findings in the right breast. No significant masses, calcifications, or other findings are seen in either breast. There has been no significant interval change. IMPRESSION: BENIGN There is no mammographic evidence of malignancy. A 1 year screening mammogram is recommended. This exam was interpreted at Station ID: [id number]. NOTE: For mammograms, a report in lay terms will be sent to the patient. Approximately 15% of breast malignancies will not be visualized mammographically. In the management of a palpable breast mass, a negative mammogram must not discourage biopsy of a clinically suspicious lesion. Electronically Signed By: Ezekiel lagos/heidi:06/29/2022 07:59:08 letter sent: Normal Exam ACR BI-RADS Category 2: Benign Finding(s) 3342F
== END ==
PROVIDERS: PCP Registered Nurse Diabetes Educator; Referring Provider Registered Nurse Diabetes Educator; Visit Provider Registered Nurse Diabetes Educator
DX: Z12.31 Encounter for screening mammogram for malignant neoplasm of breast (principal); Z80.3 Family history of malignant neoplasm of breast
CPT/HCPCS: 77063; 77067

== ENCOUNTER → 2023-02-23 07:19 | Outpatient (CLI) | payer MEDICARE, SELFPAY ==
[2023-02-23 08:53] LABS: HEMOLYSIS < 15 (0-50); Iron 113 ug/dL (37-170)
[2023-02-23 09:04] LABS: Percent Iron Saturation 31 % (15-50); Total Iron Binding Capacity 360 ug/dL (265-497); Transferrin 286 mg/dL (206-381)
[2023-02-23 09:22] LABS: Ferritin 59 ng/mL (11-264)
[2023-02-23 13:22] LABS: Hepatitis B Surface Antigen NEGATIVE s/c (NEGATIVE)
[2023-02-23 13:36] LABS: Hep C Virus Ab w/Reflex Quant NEGATIVE s/c (NEGATIVE)
[2023-02-24 09:01] LABS: Hepatitis B Core AB w/Reflex Negative (Negative)
== END ==
PROVIDERS: PCP Registered Nurse Diabetes Educator; Referring Provider Registered Nurse Diabetes Educator; Visit Provider Registered Nurse Diabetes Educator
DX: R74.8 Abnormal levels of other serum enzymes (principal)
CPT/HCPCS: 36415; 82728; 83540; 83550; 86704; 86803; 87340

== ENCOUNTER → 2023-03-01 07:17 | Outpatient (CLI) | payer MEDICARE, SELFPAY ==
[2023-03-01 08:28] LABS: Alanine Aminotransferase 23 IU/L (<35); Albumin 4.6 g/dL (3.5-5.0); Albumin Globulin Ratio 1.4 (1.0-2.8); Alkaline Phosphatase 70 U/L (38-126); Aspartate Aminotransferase 42 IU/L (14-36); BUN Creatinine Ratio 24.1 (6-22); Bilirubin Total 0.8 mg/dL (0.2-1.3); Blood Urea Nitrogen 13 mg/dL (7-17); Calcium 9.7 mg/dL (8.4-10.2); Carbon Dioxide 27 mmol/L (22-32); Chloride 102 mmol/L (98-107); Cholesterol 219 mg/dL (140-199); Estimated Glomerular Filt Rate > 60 mL/min (>60); Globulin 3.2 g/dL (1.7-4.1); Glucose 93 mg/dL (80-110); HDL Cholesterol 62 mg/dL (40-60); HEMOLYSIS 16 (0-50); LDL Cholesterol Calculated 113 mg/dL (<100); Sodium 138 mmol/L (137-145); Total Protein 7.8 g/dL (6.3-8.2); Triglycerides 218 mg/dL (35-150)
== END ==
PROVIDERS: PCP Registered Nurse Diabetes Educator; Referring Provider Registered Nurse Diabetes Educator; Visit Provider Registered Nurse Diabetes Educator
DX: E03.9 Hypothyroidism, unspecified (principal); E78.2 Mixed hyperlipidemia
CPT/HCPCS: 36415; 80053; 80061; 84443

== ENCOUNTER → 2023-03-16 | Outpatient (CLI) | payer MEDICARE, SELFPAY ==
--- NOTE | 2023-03-16 | DI.RAD.S_ITS ---
Bone Density Report Name: PEDRO LUIS SAMAYOA Age: 72 Sex: Female Ethnicity: White Date of : 1950 Indication: osteopenia; Referring Provider: JOSE GONSALEZ Study: Bone densitometry was performed. Exam Date: March 16, 2023 Accession number: [id number] Bone Density: Region BMD T-score Z-score Classification AP Spine(L1-L4) 0.878 -1.5 0.8 Osteopenia Femoral Neck (Left) 0.767 -0.7 1.2 Normal Total Hip (Left) 0.755 -1.5 0.2 Osteopenia Femoral Neck (Right) 0.689 -1.4 0.5 Osteopenia Total Hip (Right) 0.760 -1.5 0.2 Osteopenia Total Hip Mean 0.758 -1.5 0.2 Osteopenia World Health Organization criteria for BMD impression classify patients as: Normal (T-score at or above -1.0), Osteopenia (T-score between -1.0 and -2.5), or Osteoporosis (T-score at or below -2.5). 10-year Fracture Risk(1): Major Osteoporotic Fracture 11% Hip Fracture 1.8% Reported Risk Factors: [place] (), Neck BMD=0.689, BMI=25.6 (1) FRAX(R) Version 3.08. Fracture probability calculated for an untreated patient. Fracture probability may be lower if the patient has received treatment. Previous Exams: -- Region Exam Age BMD T-score BMD Change BMD Change Date g/cm2 vs Baseline vs Previous -- AP Spine (L1-L4) 03/16/2023 72 0.878 -1.5 0.039 (4.7%)# 0.039 (4.7%)# 08/18/2020 69 0.839 -1.9 Total Hip(Left) 03/16/2023 72 0.755 -1.5 -0.023 (-3.0%)# -0.023 (-3.0%)# 08/18/2020 69 0.778 -1.3 Total Hip(Right) 03/16/2023 72 0.760 -1.5 -0.020 (-2.6%)# -0.020 (-2.6%)# 08/18/2020 69 0.781 -1.3 -- *Denotes significance at 95% confidence level, LSC for AP Spine = 0.022 g/cm2, LSC for Total Hip = 0.027 g/cm2 # Denotes dissimilar scan types or analysis methods Impression: The patient has low bone mass, based on the Total Spine T-score. The patient has an estimated ten-year risk of hip fracture of 1.8% and an estimated ten-year risk of major fracture of 11%, based on the WHO FRAX algorithm. No significant bone loss was observed. Discussion: BONE DENSITY IS LOW AT ONE OR MORE SKELETAL SITES. This patient's lowest T-score is low at one or more skeletal sites. It meets the World Health Organization's (WHO) criteria for low bone mass (T-score between -1.0 and -2.5). The patient's 10-year risk of fracture as calculated by FRAX is less than the threshold where pharmacological therapy is recommended by the National Osteoporosis Foundation (NOF). However, all treatment decisions require clinical judgment and consideration of individual patient factors, including patient preferences, comorbidities, previous drug use, risk factors not captured in the FRAX model (e.g., frailty, falls, vitamin D deficiency, increased bone turnover, interval significant decline in bone density) and possible under or overestimation of fracture risk by FRAX. The patient should follow a healthful lifestyle (good nutrition with adequate calcium and vitamin D, and appropriate weight-bearing exercise). Follow-Up: Consider repeating this study in 2 to 3 years to reassess this patient's status, or sooner if there is some new clinical indication. Reported by: DEEP MILLER MD on 03/16/2023 10:15:00 AM.
== END ==
LOC: RAD 09:24
PROVIDERS: PCP Registered Nurse Diabetes Educator; Referring Provider Registered Nurse Diabetes Educator; Visit Provider Registered Nurse Diabetes Educator
DX: M85.88 Other specified disorders of bone density and structure, other site (principal); Z78.0 Asymptomatic menopausal state; Z92.23 Personal history of estrogen therapy
CPT/HCPCS: 77080

== ENCOUNTER → 2023-05-25 07:10 | Outpatient (CLI) | payer OTHER, SELFPAY ==
[2023-05-25 08:37] LABS: Alanine Aminotransferase 20 IU/L (<35); Albumin 4.2 g/dL (3.5-5.0); Albumin Globulin Ratio 1.7 (1.0-2.8); Alkaline Phosphatase 52 U/L (38-126); Aspartate Aminotransferase 38 IU/L (14-36); Bilirubin Total 0.4 mg/dL (0.2-1.3); Bilirubin Unconjugated 0.4 mg/dL (0.0-1.1); Cholesterol 162 mg/dL (140-199); Globulin 2.5 g/dL (1.7-4.1); HDL Cholesterol 59 mg/dL (40-60); HEMOLYSIS < 15 (0-50); LDL Cholesterol Calculated 59 mg/dL (<100); Total Protein 6.7 g/dL (6.3-8.2); Triglycerides 218 mg/dL (35-150)
== END ==
PROVIDERS: PCP Registered Nurse Diabetes Educator; Referring Provider Registered Nurse Diabetes Educator; Visit Provider Registered Nurse Diabetes Educator
DX: E78.2 Mixed hyperlipidemia (principal); R74.8 Abnormal levels of other serum enzymes
CPT/HCPCS: 36415; 80061; 80076

== ENCOUNTER → 2023-06-01 06:47 | Outpatient (CLI) | payer OTHER, SELFPAY ==
[2023-06-02 14:35] LABS: Interpretation Negative (Negative)
== END ==
PROVIDERS: PCP Registered Nurse Diabetes Educator; Referring Provider Registered Nurse Diabetes Educator; Visit Provider Registered Nurse Diabetes Educator
DX: R10.11 Right upper quadrant pain (principal); G89.29 Other chronic pain
CPT/HCPCS: 83013

== ENCOUNTER → 2023-06-08 08:53 | Outpatient (CLI) | payer OTHER, SELFPAY ==
--- NOTE | 2023-06-08 08:54 | DI.US.S_ITS ---
PROCEDURE: US ABDOMEN LIMITED INDICATIONS: RIGHT UPPER QUADRANT PAIN TECHNIQUE: Real-time focused scanning was performed of the abdomen, with image documentation. COMPARISON: [facility], , US ABDOMEN LIMITED, 03/03/2022, 7:09. FINDINGS: The gallbladder is normal without stones, sludge, wall thickening, or pericholecystic fluid. The extrahepatic common duct is normal caliber measuring 5.8. No visible intrahepatic biliary dilatation. The pancreatic duct is mildly dilated measuring 4 mm in the proximal portion, stable compared to the prior study. No visible pancreatic mass. The liver is mildly diffusely hyperechoic throughout the parenchyma. No discrete mass. No free fluid in the right upper quadrant. IMPRESSION: 1. Normal gallbladder. 2. Mild hepatic steatosis, similar compared to prior. 3. Chronic pancreatic ductal dilatation without progression. Dictated by: Mercedes Vilchis M.D. on 06/08/2023 at 12:16 Approved by: Mercedes Vilchis M.D. on 06/08/2023 at 12:18
== END ==
PROVIDERS: PCP Registered Nurse Diabetes Educator; Referring Provider Registered Nurse Diabetes Educator; Visit Provider Registered Nurse Diabetes Educator
DX: K86.89 Other specified diseases of pancreas (principal); K76.0 Fatty (change of) liver, not elsewhere classified; R10.11 Right upper quadrant pain; G89.29 Other chronic pain
CPT/HCPCS: 76705

== ENCOUNTER → 2023-07-05 11:12 | Outpatient (CLI) | payer OTHER, SELFPAY ==
--- NOTE | 2023-07-05 | DI.MG.S_ITS ---
BILATERAL DIGITAL SCREENING MAMMOGRAM 3D/2D WITH CAD: 07/05/2023 CLINICAL: Routine screening. Family history of breast cancer. Comparison is made to exams dated: 06/28/2022 mammogram, 03/27/2021 mammogram, and 03/04/2020 mammogram - [facility]. There are scattered areas of fibroglandular density in both breasts (category b / 25%-50% glandular tissue). Current study was also evaluated with a Computer Aided Detection (CAD) system. There are benign calcifications in both breasts. There also are benign post operative findings in the right breast. No significant masses, calcifications, or other findings are seen in either breast. There has been no significant interval change. IMPRESSION: BENIGN There is no mammographic evidence of malignancy. A 1 year screening mammogram is recommended. Based on the Tyrer Cuzick model (a risk assessment model) the patient's lifetime risk is 18.7% and her 10 year risk is 15.6%. According to the ACR, ACS, and NCCN guidelines, an annual breast MRI exam along with mammogram is recommended if the patient's lifetime risk is 20% or greater. This exam was interpreted at Station ID: [id number]. NOTE: For mammograms, a report in lay terms will be sent to the patient. Approximately 15% of breast malignancies will not be visualized mammographically. In the management of a palpable breast mass, a negative mammogram must not discourage biopsy of a clinically suspicious lesion. Electronically Signed By: Mercedes zafar/heidi:07/05/2023 13:31:19 letter sent: Normal Exam ACR BI-RADS Category 2: Benign Finding(s) 3342F
== END ==
PROVIDERS: PCP Registered Nurse Diabetes Educator; Referring Provider Registered Nurse Diabetes Educator; Visit Provider Registered Nurse Diabetes Educator
DX: Z12.31 Encounter for screening mammogram for malignant neoplasm of breast (principal); Z80.3 Family history of malignant neoplasm of breast
CPT/HCPCS: 77063; 77067

== ENCOUNTER → 2023-08-15 11:23 | Outpatient (CLI) | payer OTHER, SELFPAY ==
--- NOTE | 2023-08-15 12:31 | DI.MRI.S_ITS ---
PROCEDURE: MR AB PANCREATIC/MRCP PROTOCOL INDICATIONS: Other specified diseases of pancreas TECHNIQUE: Coronal HASTE through the abdomen, axial 2-D FLASH in- and [id number], and breath-hold T2 FSE with fat saturation through the biliary system and pancreas. Oblique coronal and axial thin-slice HASTE, radial thick-slab HASTE centered on the extrahepatic bile ducts. Intravenous secretin: Not requested. COMPARISON: [facility], CT, CT ABDOMEN PELVIS W CON, 02/02/2020, 22:59. FINDINGS: Image quality: Diagnostic. Gallbladder: No gallstones or wall thickening. Biliary ducts: No biliary dilation. Pancreas: Mild ectasia of the pancreatic duct, measuring 4-5 millimeters. Dilated side branches are seen within the body and tail (series 8, image 3). No nodularity. No enhancing mass. OTHER: Lung bases: Unremarkable. Liver: No solid mass. Geographic fat deposition. Spleen: Size is within normal limits. Adrenal Glands: No adrenal nodules. Kidneys and Ureters: No hydronephrosis. No solid mass. No complex renal cystic lesion which requires follow up. Stomach and Bowel: Normal colonic caliber, without significant wall thickening. Peritoneum: No abnormal intraperitoneal fluid. No free air. Ventral Wall: No hernia. Abdominal Nodes: No retroperitoneal or mesenteric adenopathy by size criteria. Vessels: Aorta and inferior vena cava are normal in size. Bones: No aggressive osseous abnormality. IMPRESSION: Mild ectasia of the pancreatic duct, measuring 4-5 millimeters. Additionally, there are a few dilated side branches within the body and tail of pancreas. Differential includes changes following chronic pancreatitis or early mixed type IPMN. Recommend GI referral if not already performed. Hepatic steatosis. Dictated by: Hans Garcia M.D. on 08/15/2023 at 13:22 Approved by: Hans Garcia M.D. on 08/15/2023 at 13:27
== END ==
PROVIDERS: PCP Registered Nurse Diabetes Educator; Referring Provider Internal Medicine; Visit Provider Internal Medicine
DX: K86.89 Other specified diseases of pancreas (principal); K76.0 Fatty (change of) liver, not elsewhere classified
CPT/HCPCS: 74183; A9579

== ENCOUNTER → 2024-02-29 06:46 | Outpatient (CLI) | payer MEDICARE, SELFPAY ==
[2024-02-29 08:41] LABS: Alanine Aminotransferase 22 IU/L (<35); Albumin 4.4 g/dL (3.5-5.0); Albumin Globulin Ratio 1.8 (1.0-2.8); Alkaline Phosphatase 65 U/L (38-126); Aspartate Aminotransferase 41 IU/L (14-36); Bilirubin Total 0.8 mg/dL (0.2-1.3); Blood Urea Nitrogen 9 mg/dL (7-17); Carbon Dioxide 24 mmol/L (22-32); Chloride 107 mmol/L (98-107); Cholesterol 173 mg/dL (140-199); Estimated Glomerular Filt Rate > 60 mL/min (>60); Globulin 2.4 g/dL (1.7-4.1); Glucose 93 mg/dL (80-110); HDL Cholesterol 61 mg/dL (40-60); HEMOLYSIS < 15 (0-50); LDL Cholesterol Calculated 76 mg/dL (<100); Potassium 4.6 mmol/L (3.4-5.1); Sodium 139 mmol/L (137-145); Total Protein 6.8 g/dL (6.3-8.2); Triglycerides 178 mg/dL (35-150)
[2024-02-29 09:12] LABS: TSH w/ Reflex to FT4 1.73 uIU/mL (0.47-4.68)
[2024-02-29 09:20] LABS: Hematocrit 41.8 % (36-46); Hemoglobin 14.1 g/dL (12.0-16.0); Mean Corpuscular HGB Conc 33.7 % (30-36); Mean Corpuscular Hemoglobin 30.1 PG (26-34); Mean Corpuscular Volume 89.3 fL (80-100); Platelet Count 291 X10^3/uL (150-400); Red Blood Cell Count 4.68 X10^6/uL (4.0-5.2); Red Cell Distribution Width 14.1 % (11.6-14.8); White Blood Cell Count 8.4 X10^3/uL (4.5-11.0)
== END ==
PROVIDERS: PCP Registered Nurse Diabetes Educator; Referring Provider Registered Nurse Diabetes Educator; Visit Provider Registered Nurse Diabetes Educator
DX: K76.0 Fatty (change of) liver, not elsewhere classified (principal); E03.9 Hypothyroidism, unspecified; E78.2 Mixed hyperlipidemia; D72.829 Elevated white blood cell count, unspecified; Z51.81 Encounter for therapeutic drug level monitoring
CPT/HCPCS: 36415; 80053; 80061; 84443; 85027

== ENCOUNTER → 2024-07-10 14:07 | Outpatient (CLI) | payer MEDICARE, SELFPAY ==
--- NOTE | 2024-07-10 14:09 | DI.RAD.S_ITS ---
PROCEDURE: XR DEXA AXIAL SKELETON INDICATIONS: reeval COMPARISON: [facility], CR, XR DEXA AXIAL SKELETON, 03/16/2023, 10:00. [facility], CR, XR DEXA AXIAL SKELETON, 08/18/2020, 13:31. [facility], CR, XR DEXA AXIAL SKELETON, 01/09/2018, 10:53. FINDINGS: Lumbar Spine: Bone mineral density 0.879 g/cm2, T score -1.5, previously -1.5. The lowest T-score is -2.1 for the L4 vertebral body. Left Hip: Bone mineral density 0.738 g/cm2, T score -1.7, previously -1.5. Left Femoral Neck: Bone mineral density 0.769 g/cm2, T score -0.7, previously -0.7. Right Hip: Bone mineral density 0.746 g/cm2, T score -1.6, previously -1.5. Right Femoral Neck: Bone mineral density 0.705 g/cm2, T score -1.3, previously -1.4. Fracture Risk Calculation (when applicable): 10-year fracture risk of a major osteoporotic fracture 11 percent and of a hip fracture 1.9 percent. (T score greater or equal to -1.0 to: NORMAL) (T score from -1.1 to -2.4: OSTEOPENIA) (T score less than or equal to -2.5: OSTEOPOROSIS) IMPRESSION: 1. Osteopenia of the lumbar spine. 2. Osteopenia of the left hip. 3. Normal bone density of the left femoral neck. 4. Osteopenia of the right hip and femoral neck. Follow-up guidelines as follows: Osteoporosis: Consider a repeat DEXA and Vertebral Fracture Assessment (VFA) exam in 2 years or sooner if medically necessary, to reassess this patient's status. Osteopenia: Consider a repeat DEXA in 2-3 years to reassess this patient's status, or if there is a new clinical indication. Normal: Consider a repeat DEXA in 5 years or sooner, or if there is a new clinical indication. All treatment decisions require clinical judgment and consideration of individual patient factors, including patient preferences, comorbidities, previous drug use, risk factors not captured in the FRAX model (e.g., frailty, falls, vitamin D deficiency, increased bone turnover, interval significant decline in bone density ) and possible under- or over-estimation of fracture risk by FRAX. In addition, the NOF Guide recommends that FDA-approved medical therapies be considered in postmenopausal women and men age >= 50 years with a: * Hip or vertebral (clinical or morphometric) fracture * T-score of <=-2.5 at the spine or hip * Ten-year fracture probability by FRAX of >= 3% for hip fracture or >=20% for major osteoporotic fracture. People with diagnosed cases of osteoporosis or at high risk for fracture should have regular bone mineral density tests. For patients eligible for Medicare, routine testing is allowed once every 2 years. The testing frequency can be increased to one year for patients who have rapidly progressing disease, those who are receiving or discontinuing medical therapy to restore bone mass, or have additional risk factors. Dictated by: Omi De La Garza M.D. on 07/10/2024 at 19:18 Approved by: Omi De La Garza M.D. on 07/10/2024 at 19:24
--- NOTE | 2024-07-10 14:11 | DI.MG.S_ITS ---
BILATERAL DIGITAL SCREENING MAMMOGRAM 3D/2D WITH CAD: 07/10/2024 CLINICAL: Routine screening. Family history of breast cancer. Comparison is made to exams dated: 07/05/2023 mammogram, 06/28/2022 mammogram, and 03/27/2021 mammogram - . There are scattered areas of fibroglandular density (category b / 25%-50% glandular tissue). Current study was also evaluated with a Computer Aided Detection (CAD) system. There are benign calcifications in both breasts. There also are benign post operative findings in the right breast. No significant masses, calcifications, or other findings are seen in either breast. There has been no significant interval change. IMPRESSION: BENIGN There is no mammographic evidence of malignancy. A 1 year screening mammogram is recommended. Based on the Tyrer Cuzick model (a risk assessment model) the patient's lifetime risk is 17.7% and her 10 year risk is 16.1%. According to the ACR, ACS, and NCCN guidelines, an annual breast MRI exam along with mammogram is recommended if the patient's lifetime risk is 20% or greater. This exam was interpreted at Station ID: [id number]. NOTE: For mammograms, a report in lay terms will be sent to the patient. Approximately 15% of breast malignancies will not be visualized mammographically. In the management of a palpable breast mass, a negative mammogram must not discourage biopsy of a clinically suspicious lesion. Electronically Signed By: Saman horvath/heidi:07/10/2024 16:34:40 letter sent: Normal Exam ACR BI-RADS Category 2: Benign
== END ==
PROVIDERS: PCP Registered Nurse Diabetes Educator; Referring Provider Registered Nurse Diabetes Educator; Visit Provider Registered Nurse Diabetes Educator
DX: Z12.31 Encounter for screening mammogram for malignant neoplasm of breast; Z80.3 Family history of malignant neoplasm of breast; M85.89 Other specified disorders of bone density and structure, multiple sites
CPT/HCPCS: 77063; 77067; 77080

== ENCOUNTER 2024-07-14 06:00 | Emergency (ER) | payer MEDICARE, SELFPAY ==
[2024-07-14 06:04] VITALS: O2SAT 97
[2024-07-14 06:05] VITALS: BP 150/76; PULSE 93; PULSE 99; RESP 18; TEMP 37.6; O2SAT 97; O2SAT 98; BMI 26.3
--- NOTE | 2024-07-14 06:12 | ED_ITS ---
HPI - Abdominal Pain <Nidhi Denton MD - Last Filed: 07/17/24 21:15> General Chief Complaint: Abdominal Pain Stated Complaint: diverticulitus Time Seen by Provider: 07/14/24 06:11 History of Present Illness HPI narrative: 73yoF wtih PMH hypothyroidism presents for 3 days of gradually worsening left lower quadrant abdominal pain. Reports subjective fevers at home, however T-max measured at home was 98.6F. Pain worsened overnight and so she decided to present for evaluation. Patient has remote history of diverticulitis and this is somewhat similar. has been trying to take Gas-X for pain at home without relief. Related Data Home Medications Medication Instructions Recorded Confirmed aspirin 81 mg tablet,delayed 81 mg PO DAILY 02/06/20 03/05/24 release (Adult Aspirin Regimen) ketoconazole 2 % topical cream 1 applic topical DAILY PRN 11/24/21 03/05/24 desonide 0.05 % topical cream applic topical BID PRN 03/01/23 03/05/24 melatonin 10 mg chewable tablet mg PO 03/01/23 03/05/24 Previous Rx's Medication Instructions Recorded hydrocortisone-acetic acid 1 %-2 % 5 drp EAR-RIGHT QID PRN itching 02/23/22 ear drops #10 mL [id number] antigen-AS01E 0.5 ml IM ONCE #1 ea 03/01/23 adjuvant(PF) 120 mcg/0.5 mL IM suspension, kit (Arexvy (PF)) levothyroxine 75 mcg tablet 75 mcg PO DAILY #90 tabs 03/05/24 raloxifene 60 mg tablet 60 mg PO DAILY #90 tabs 03/05/24 rosuvastatin 5 mg tablet 5 mg PO DAILY #90 tabs 03/05/24 amoxicillin 875 mg-potassium 1 tab PO BID #20 tabs 07/14/24 clavulanate 125 mg tablet hydrocodone 5 mg-acetaminophen 325 1 tab PO Q6H PRN pain #14 tabs 07/14/24 mg tablet Allergies Allergy/AdvReac Type Severity Reaction Status Date / Time tetracycline [TETRACYCLINE] Allergy Severe n/v Verified 03/05/24 10:08 Sulfa (Sulfonamide Allergy Unknown rash Verified 03/05/24 10:08 Antibiotics) [SULFA (SULFONAMIDE ANTIBIOTICS)] Patient History <Nidhi Denton MD - Last Filed: 07/17/24 21:15> Medical History Fatty liver disease, nonalcoholic Osteopenia Atypical ductal hyperplasia of breast Basal cell carcinoma Bunion of great toe of right foot Screening for malignant neoplasm of colon Elevated white blood cell count Impacted cerumen, bilateral Screening for malignant neoplasm of breast Microscopic hematuria Mixed hyperlipidemia Osteopenia after menopause Hypercholesterolemia (Unknown) Fractures (1963) Foot pain (2014) Ankle pain (2014) Rosacea (Unknown) Actinic keratosis (2009) Rubella (~1950) Mumps (~1950) Measles (1957) Chickenpox (1956) Hypothyroidism (~1999) Hyperlipemia (~1989) Surgical History History of shoulder surgery (1987) History of tonsillectomy Family History Father Heart disease High cholesterol Grandmother Diabetes mellitus Mother Hypertension Grandfather Stroke Grandfather Cancer Grandmother No problems noted. Other Family history of cardiovascular disease Social History household members: spouse Smoking Status: Never smoker second hand exposure: No alcohol intake: never substance use type: does not use Smoking Status: Never smoker Exam <Nidhi Denton MD - Last Filed: 07/17/24 21:15> Initial Vital Signs Initial Vital Signs: Vital Signs Pulse Oximetry 97 07/14/24 06:04 Const: Awake, alert, no acute distress, nontoxic appearing Cardiac: regular rate, regular rhythm RESP: unlabored, clear bilaterally, no wheezing GI: Soft, LLQ tenderness to deep palpation Skin: Warm, Dry, intact, no rashes Neuro: AO x3, CN II-XII grossly intact, moves all extremities <Remi Shepherd MD - Last Filed: 07/14/24 10:07> Initial Vital Signs Initial Vital Signs: Vital Signs Pulse Oximetry 97 07/14/24 06:04 Course <Nidhi Denton MD - Last Filed: 07/17/24 21:15> Orders Ordered: Discontinued Medications Hydrocodone Bitart/Acetaminophen (Hydrocodone/Acet 5/325 Tablet) 1 tab PO NOW ONE Stop: 07/14/24 07:39 Last Admin: 07/14/24 07:49 Dose: 1 tab Documented By: RUPERTO Amoxicillin/Clavulanate Potassium (Amoxicillin/Clav 875/125 Mg) 1 tab PO NOW ONE Stop: 07/14/24 07:34 Last Admin: 07/14/24 07:49 Dose: 1 tab Documented By: RUPERTO Morphine Sulfate (Morphine 4 Mg/Ml Inj) 4 mg IV NOW ONE Stop: 07/14/24 06:20 Last Admin: 07/14/24 06:42 Dose: 4 mg Documented By: AINSLEY Ondansetron HCl (Ondansetron 4 Mg/2 Ml Inj) 4 mg IV NOW ONE Stop: 07/14/24 06:20 Last Admin: 07/14/24 06:45 Dose: Not Given Documented By: AINSLEY Vital Signs Vital signs: Vital Signs - 8 hr 07/14/24 06:04 07/14/24 06:05 07/14/24 06:05 Temperature 99.7 F H Pulse Rate 99 H 93 H Respiratory Rate 18 Blood Pressure 150/76 H Pulse Oximetry 97 97 98 Oxygen Delivery Method Room Air 07/14/24 06:30 07/14/24 06:30 07/14/24 06:54 Temperature Pulse Rate 88 Respiratory Rate Blood Pressure 117/60 104/55 L Pulse Oximetry 97 Oxygen Delivery Method 07/14/24 06:54 07/14/24 07:00 07/14/24 07:00 Temperature Pulse Rate 80 83 Respiratory Rate Blood Pressure 108/56 L Pulse Oximetry 96 94 Oxygen Delivery Method 07/14/24 07:30 07/14/24 07:30 Temperature Pulse Rate 77 Respiratory Rate Blood Pressure 100/60 Pulse Oximetry 94 Oxygen Delivery Method <Remi Shepherd MD - Last Filed: 07/14/24 10:07> Orders Ordered: Discontinued Medications Hydrocodone Bitart/Acetaminophen (Hydrocodone/Acet 5/325 Tablet) 1 tab PO NOW ONE Stop: 07/14/24 07:39 Last Admin: 07/14/24 07:49 Dose: 1 tab Documented By: RUPERTO Amoxicillin/Clavulanate Potassium (Amoxicillin/Clav 875/125 Mg) 1 tab PO NOW ONE Stop: 07/14/24 07:34 Last Admin: 07/14/24 07:49 Dose: 1 tab Documented By: RUPERTO Morphine Sulfate (Morphine 4 Mg/Ml Inj) 4 mg IV NOW ONE Stop: 07/14/24 06:20 Last Admin: 07/14/24 06:42 Dose: 4 mg Documented By: AINSLEY Ondansetron HCl (Ondansetron 4 Mg/2 Ml Inj) 4 mg IV NOW ONE Stop: 07/14/24 06:20 Last Admin: 07/14/24 06:45 Dose: Not Given Documented By: AINSLEY Vital Signs Vital signs: Vital Signs - 8 hr 07/14/24 06:04 07/14/24 06:05 07/14/24 06:05 Temperature 99.7 F H Pulse Rate 99 H 93 H Respiratory Rate 18 Blood Pressure 150/76 H Pulse Oximetry 97 97 98 Oxygen Delivery Method Room Air 07/14/24 06:30 07/14/24 06:30 07/14/24 06:54 Temperature Pulse Rate 88 Respiratory Rate Blood Pressure 117/60 104/55 L Pulse Oximetry 97 Oxygen Delivery Method 07/14/24 06:54 07/14/24 07:00 07/14/24 07:00 Temperature Pulse Rate 80 83 Respiratory Rate Blood Pressure 108/56 L Pulse Oximetry 96 94 Oxygen Delivery Method 07/14/24 07:30 07/14/24 07:30 Temperature Pulse Rate 77 Respiratory Rate Blood Pressure 100/60 Pulse Oximetry 94 Oxygen Delivery Method MDM - Abdominal Pain <Nidhi Denton MD - Last Filed: 07/17/24 21:15> Lab Data 07/14/24 06:10 07/14/24 06:10 Labs: Lab Results 07/14/24 Range/Units 06:10 WBC 18.1 H (4.5-11.0) X10^3/uL RBC 4.66 (4.0-5.2) X10^6/uL Hgb 13.8 (12.0-16.0) g/dL Hct 41.8 (36-46) % MCV 89.7 (80-100) fL MCH 29.5 (26-34) PG MCHC 32.9 (30-36) % RDW 13.6 (11.6-14.8) % Plt Count 274 (150-400) X10^3/uL Neut % (Auto) 70.1 (50-75) % Lymph % (Auto) 17.6 L (25-40) % Kimble % (Auto) 8.8 (3-14) % Eos % (Auto) 2.0 (2-4) % Baso % (Auto) 1.5 (0-2) % Neut # (Auto) 47473 H (6636-2046) /uL Lymph # (Auto) 3200 (6012-5618) /uL Kimble # (Auto) 1600 H (0-900) /uL Eos # (Auto) 400 (0-450) /uL Baso # (Auto) 300 H (0-100) /uL Sodium 134 L (137-145) mmol/L Potassium 4.1 (3.4-5.1) mmol/L Chloride 104 (98-107) mmol/L Carbon Dioxide 24 (22-32) mmol/L BUN 9 (7-17) mg/dL Creatinine 0.64 (0.52-1.04) mg/dL Estimated GFR > 60 (>60) mL/min BUN/Creatinine Ratio 14.1 (6-22) Glucose 116 H (80-110) mg/dL Lactate 1.7 (0.7-2.1) mmol/L Calcium 9.4 (8.4-10.2) mg/dL Total Bilirubin 0.6 (0.2-1.3) mg/dL AST 45 H (14-36) IU/L ALT 25 (<35) IU/L Alkaline Phosphatase 71 (38-126) U/L Total Protein 7.7 (6.3-8.2) g/dL Albumin 4.3 (3.5-5.0) g/dL Globulin 3.4 (1.7-4.1) g/dL Albumin/Globulin Ratio 1.3 (1.0-2.8) Lipase 87 (23-300) U/L [facility] Narrative Medical decision making narrative: 3 days of gradually worsening left lower quadrant tenderness. No peritoneal signs on exam. Patient was concerned that this may be a recurrence of her diverticulitis. Laboratory work, CT of the abdomen and pelvis ordered. Labs, imaging pending. Patient care signed to Dr. Shepherd at 0700 07/14/2024, 0700, Joao. Sign-out from Dr. Denton. 73-year-old female with history of diverticulitis, has 3 days duration left lower quadrant pain with some tenderness on examination, white blood cell count [id number], CT abdomen and pelvis imaging has been ordered, results pending. Assumed care. CT abdomen and pelvis. Impressions: ?Acute diverticulitis proximal sigmoid colon. No free air, obstruction, lymphadenopathy or abscess. Trace free fluid in the pelvis. Hepatic steatosis. Mildly dilated pancreatic duct with no focal pancreatic lesions present. This is stable. ? See teleradiology report In-house radiology report also resulted, imported above, no significant difference from tele radiology report. Copies of both reports given to patient with explanation/discussion. We discussed antibiotic regimen options of ciprofloxacin/Flagyl, patient seems to be aware of tendonopathy risks, would prefer alternative course oral Augmentin, we will give first oral dose now, e-prescription sent for 10 day course. Analgesics as neede, Rx for Hydrocodone/APAP #14 tabs also sent. Recheck advised with her PCP early next week. Return precautions discussed. Discharged home <Remi Shepherd MD - Last Filed: 07/14/24 10:07> Lab Data Labs: Lab Results 07/14/24 Range/Units 06:10 WBC 18.1 H (4.5-11.0) X10^3/uL RBC 4.66 (4.0-5.2) X10^6/uL Hgb 13.8 (12.0-16.0) g/dL Hct 41.8 (36-46) % MCV 89.7 (80-100) fL MCH 29.5 (26-34) PG MCHC 32.9 (30-36) % RDW 13.6 (11.6-14.8) % Plt Count 274 (150-400) X10^3/uL Neut % (Auto) 70.1 (50-75) % Lymph % (Auto) 17.6 L (25-40) % Kimble % (Auto) 8.8 (3-14) % Eos % (Auto) 2.0 (2-4) % Baso % (Auto) 1.5 (0-2) % Neut # (Auto) 52973 H (4480-3626) /uL Lymph # (Auto) 3200 (1070-5473) /uL Kimble # (Auto) 1600 H (0-900) /uL Eos # (Auto) 400 (0-450) /uL Baso # (Auto) 300 H (0-100) /uL Sodium 134 L (137-145) mmol/L Potassium 4.1 (3.4-5.1) mmol/L Chloride 104 (98-107) mmol/L Carbon Dioxide 24 (22-32) mmol/L BUN 9 (7-17) mg/dL Creatinine 0.64 (0.52-1.04) mg/dL Estimated GFR > 60 (>60) mL/min BUN/Creatinine Ratio 14.1 (6-22) Glucose 116 H (80-110) mg/dL Lactate 1.7 (0.7-2.1) mmol/L Calcium 9.4 (8.4-10.2) mg/dL Total Bilirubin 0.6 (0.2-1.3) mg/dL AST 45 H (14-36) IU/L ALT 25 (<35) IU/L Alkaline Phosphatase 71 (38-126) U/L Total Protein 7.7 (6.3-8.2) g/dL Albumin 4.3 (3.5-5.0) g/dL Globulin 3.4 (1.7-4.1) g/dL Albumin/Globulin Ratio 1.3 (1.0-2.8) Lipase 87 (23-300) U/L Imaging Data CT scan - abdomen/pelvis: Radiologist's Impression: [place] [address] CT Scan Report Signed Patient: Mariya Cárdenas MR#: [id number] : 1950 Acct:[id number] Age/Sex: 73 / F Date of Service: 07/14/24 Loc: ED Accession Number: [id number] Procedure: CT abdomen pelvis w con Ordering Provider: Nidhi Denton MD PROCEDURE: CT ABDOMEN PELVIS W CON INDICATIONS: LLQ PAIN, HX DIVERTICULITIS TECHNIQUE: After the administration of intravenous contrast, axial sections acquired from the lung bases to the pubic symphysis. Coronal and sagittal reformats were performed. For radiation dose reduction, the following was used: automated exposure control, adjustment of mA and/or kV according to patient size. COMPARISON: [facility], MR, MR AB PANCREATIC/MRCP PROTOCOL, 08/15/2023, 12:09. [facility], CT, CT ABDOMEN PELVIS W CON, 02/02/2020, 22:59. FINDINGS: Image quality: Diagnostic. Peritoneum: No pneumoperitoneum or ascites. Bones: No acute osseous abnormality. Multilevel mild-moderate lumbar osteoarthrosis, most conspicuous at L5-S1 (4/74). Lower Chest: No acute abnormality. Liver: Borderline enlarged at 19.7 cm (3/44). Diffuse hypoattenuation. Gallbladder: No stones or pericholecystic fluid. Biliary tree: No intrahepatic or extrahepatic biliary ductal dilatation. Pancreas: Within normal limits. Mild pancreatic ductal dilatation up to 5 mm at the pancreatic body (2/37) Spleen: Normal in size and contour. Kidneys: No hydronephrosis or obstructive urolithiasis. Adrenals: No adrenal nodularity. Bladder: Normal in size and wall thickness. : No acute abnormality. Stomach: Small hiatal hernia. Otherwise, normal in size and contour. Bowel: Mural thickening up to 1.5 cm of the proximal sigmoid colon with a small amount of fluid, likely in the inflamed diverticulum (2/107; 4/60). Background of scattered colonic diverticulosis. No drainable fluid collection. Otherwise, normal in diameter without any bowel obstruction. Appendix within normal limits (3/50). Lymph Nodes: No retroperitoneal, mesenteric, or inguinal lymphadenopathy. Vascular: No abdominal aortic aneurysm. The visualized arterial vasculature is patent. Soft Tissues: No acute abnormality. IMPRESSION: 1. Acute, uncomplicated sigmoid diverticulitis. 2. Borderline hepatomegaly with hepatic steatosis. 3. Pancreatic ductal dilatation up to 5 mm. These refers to the MRI abdomen/MRCP report from 06/2409/13/2023 for further details. Dictated by: Omi De La Garza M.D. on 07/14/2024 at 7:15 Approved by: Omi De La Garza M.D. on 07/14/2024 at 7:26 MDM Narrative Medical decision making narrative: 3 days of gradually worsening left lower quadrant tenderness. No peritoneal signs on exam. Patient was concerned that this may be a recurrence of her diverticulitis. Laboratory work, CT of the abdomen and pelvis ordered. 07/14/2024, 07Joao Vasquez. Sign-out from Dr. Denton. 73-year-old female with history of diverticulitis, has 3 days duration left lower quadrant pain with some tenderness on examination, white blood cell count [id number], CT abdomen and pelvis imaging has been ordered, results pending. Assumed care. CT abdomen and pelvis. Impressions: ?Acute diverticulitis proximal sigmoid colon. No free air, obstruction, lymphadenopathy or abscess. Trace free fluid in the pelvis. Hepatic steatosis. Mildly dilated pancreatic duct with no focal pancreatic lesions present. This is stable. ? See teleradiology report In-house radiology report also resulted, imported above, no significant difference from tele radiology report. Copies of both reports given to patient with explanation/discussion. We discussed antibiotic regimen options of ciprofloxacin/Flagyl, patient seems to be aware of tendonopathy risks, would prefer alternative course oral Augmentin, we will give first oral dose now, e-prescription sent for 10 day course. Analgesics as neede, Rx for Hydrocodone/APAP #14 tabs also sent. Recheck advised with her PCP early next week. Return precautions discussed. Discharged home Discharge Plan Departure Patient Disposition: Home Clinical Impression: Acute diverticulitis Activity Restrictions/Additional Instructions: Left lower quadrant abdominal pain, history of diverticulitis, elevated white blood cell count no fever on triage, CT scanning tonight showed uncomplicated acute diverticulitis, no mention of any obstruction changes or perforation or abscess. You are not having rectal bleeding symptoms. We discussed oral antibiotic regimen, you had taken ciprofloxacin/Flagyl antibiotic combination in the past, but are aware of potential tendon problems with ciprofloxacin, preferred the alternate oral antibiotic regimen Augmentin. First dose Augmentin antibiotic given in the emergency department, further course 10 days sent to your pharmacy. Take pain medications if needed. Take rroc-bee-krefwon ibuprofen if needed. Recheck symptoms with your regular doctor early next week. Return to this/nearest emergency department for any change worsening symptoms or any concerns prior Prescriptions: New amoxicillin-pot clavulanate 875-125 mg tablet 1 tab PO BID Qty: 20 0RF hydrocodone-acetaminophen 5-325 mg tablet 1 tab PO Q6H PRN (Reason: pain) Qty: 14 0RF No Action aspirin [Adult Aspirin Regimen] 81 mg tablet,delayed release (DR/EC) 81 mg PO DAILY ketoconazole 2 % cream 1 applic topical DAILY PRN Patient Comments: 15 gram tube levothyroxine 75 mcg tablet 75 mcg PO DAILY Qty: 90 3RF raloxifene 60 mg tablet 60 mg PO DAILY Qty: 90 3RF rosuvastatin 5 mg tablet 5 mg PO DAILY Qty: 90 3RF hydrocortisone-acetic acid 1-2 % drops 5 drp EAR-RIGHT QID PRN (Reason: itching) Qty: 10 5RF Rx Instructions: for otitis externa recurrences desonide 0.05 % cream topical BID PRN melatonin 10 mg tablet,chewable PO Arexvy (PF) 120 mcg/0.5 mL suspension for reconstitution 0.5 ml IM ONCE Qty: 1 0RF Rx Instructions: as a single dose Referrals: Adam Zelaya ARNP [Primary Care Provider] - Stand Alone Forms: Patient Portal/API/Survey
--- NOTE | 2024-07-14 06:20 | DI.CT.S_ITS ---
PROCEDURE: CT ABDOMEN PELVIS W CON INDICATIONS: LLQ PAIN, HX DIVERTICULITIS TECHNIQUE: After the administration of intravenous contrast, axial sections acquired from the lung bases to the pubic symphysis. Coronal and sagittal reformats were performed. For radiation dose reduction, the following was used: automated exposure control, adjustment of mA and/or kV according to patient size. COMPARISON: [facility], MR, MR AB PANCREATIC/MRCP PROTOCOL, 08/15/2023, 12:09. [facility], CT, CT ABDOMEN PELVIS W CON, 02/02/2020, 22:59. FINDINGS: Image quality: Diagnostic. Peritoneum: No pneumoperitoneum or ascites. Bones: No acute osseous abnormality. Multilevel mild-moderate lumbar osteoarthrosis, most conspicuous at L5-S1 (4/74). Lower Chest: No acute abnormality. Liver: Borderline enlarged at 19.7 cm (3/44). Diffuse hypoattenuation. Gallbladder: No stones or pericholecystic fluid. Biliary tree: No intrahepatic or extrahepatic biliary ductal dilatation. Pancreas: Within normal limits. Mild pancreatic ductal dilatation up to 5 mm at the pancreatic body (2/37) Spleen: Normal in size and contour. Kidneys: No hydronephrosis or obstructive urolithiasis. Adrenals: No adrenal nodularity. Bladder: Normal in size and wall thickness. : No acute abnormality. Stomach: Small hiatal hernia. Otherwise, normal in size and contour. Bowel: Mural thickening up to 1.5 cm of the proximal sigmoid colon with a small amount of fluid, likely in the inflamed diverticulum (2/107; 4/60). Background of scattered colonic diverticulosis. No drainable fluid collection. Otherwise, normal in diameter without any bowel obstruction. Appendix within normal limits (3/50). Lymph Nodes: No retroperitoneal, mesenteric, or inguinal lymphadenopathy. Vascular: No abdominal aortic aneurysm. The visualized arterial vasculature is patent. Soft Tissues: No acute abnormality. IMPRESSION: 1. Acute, uncomplicated sigmoid diverticulitis. 2. Borderline hepatomegaly with hepatic steatosis. 3. Pancreatic ductal dilatation up to 5 mm. These refers to the MRI abdomen/MRCP report from 06/2409/13/2023 for further details. Dictated by: Omi De La Garza M.D. on 07/14/2024 at 7:15 Approved by: Omi De La Garza M.D. on 07/14/2024 at 7:26
[2024-07-14 06:28] LABS: Add Manual Diff / Slide Review NO; Basophils Absolute Auto 300 /uL (0-100); Basophils Percent Auto 1.5 % (0-2); Eosinophils Absolute Auto 400 /uL (0-450); Hematocrit 41.8 % (36-46); Hemoglobin 13.8 g/dL (12.0-16.0); Lymphocytes Absolute Auto 3200 /uL (1100-4500); Lymphocytes Percent Auto 17.6 % (25-40); Mean Corpuscular HGB Conc 32.9 % (30-36); Mean Corpuscular Hemoglobin 29.5 PG (26-34); Mean Corpuscular Volume 89.7 fL (80-100); Monocytes Absolute Auto 1600 /uL (0-900); Monocytes Percent Auto 8.8 % (3-14); Neutrophils Absolute Auto 12700 /uL (1500-7000); Neutrophils Percent Auto 70.1 % (50-75); Platelet Count 274 X10^3/uL (150-400); Red Blood Cell Count 4.66 X10^6/uL (4.0-5.2); Red Cell Distribution Width 13.6 % (11.6-14.8); White Blood Cell Count 18.1 X10^3/uL (4.5-11.0)
[2024-07-14 06:30] VITALS: BP 117/60; PULSE 88; O2SAT 97
[2024-07-14 06:35] LABS: Lipase 87 U/L (23-300)
[2024-07-14 06:36] LABS: Alanine Aminotransferase 25 IU/L (<35); Albumin 4.3 g/dL (3.5-5.0); Albumin Globulin Ratio 1.3 (1.0-2.8); Alkaline Phosphatase 71 U/L (38-126); Aspartate Aminotransferase 45 IU/L (14-36); BUN Creatinine Ratio 14.1 (6-22); Bilirubin Total 0.6 mg/dL (0.2-1.3); Blood Urea Nitrogen 9 mg/dL (7-17); Calcium 9.4 mg/dL (8.4-10.2); Carbon Dioxide 24 mmol/L (22-32); Chloride 104 mmol/L (98-107); Estimated Glomerular Filt Rate > 60 mL/min (>60); Globulin 3.4 g/dL (1.7-4.1); Glucose 116 mg/dL (80-110); HEMOLYSIS < 15 (0-50); Potassium 4.1 mmol/L (3.4-5.1); Sodium 134 mmol/L (137-145); Total Protein 7.7 g/dL (6.3-8.2)
[2024-07-14 06:37] LABS: Lactate (Lactic Acid) 1.7 mmol/L (0.7-2.1)
[2024-07-14] MEDS: MORPHINE 4 MG/ML INJ IV (06:42)
[2024-07-14 06:54] VITALS: BP 104/55; PULSE 80; O2SAT 96
[2024-07-14 07:00] VITALS: BP 108/56; PULSE 83; O2SAT 94
[2024-07-14 07:30] VITALS: BP 100/60; PULSE 77; O2SAT 94
[2024-07-14] MEDS: AMOXICILLIN/CLAV 875/125 MG 1 TAB PO (07:49)
[2024-07-14] MEDS: HYDROCODONE/ACET 5/325 TABLET 1 TAB PO (07:49)
== END 2024-07-14 08:31 | disposition home or self-care (01) ==
PROVIDERS: Emergency Medicine; Emergency Provider Emergency Medicine; PCP Registered Nurse Diabetes Educator
DX: K57.32 Diverticulitis of large intestine without perforation or abscess without bleeding (principal)
CPT/HCPCS: 36415; 74177; 80053; 83605; 83690; 85025; 96374; 99284; J2270; Q9967

== ENCOUNTER → 2025-03-06 06:50 | Outpatient (CLI) | payer MEDICARE, SELFPAY ==
[2025-03-06 08:06] LABS: Hematocrit 40.6 % (36-46); Hemoglobin 13.9 g/dL (12.0-16.0); Mean Corpuscular HGB Conc 34.1 % (30-36); Mean Corpuscular Hemoglobin 30.4 PG (26-34); Mean Corpuscular Volume 89.0 fL (80-100); Platelet Count 264 X10^3/uL (150-400)
[2025-03-06 08:28] LABS: Alanine Aminotransferase 19 IU/L (<35); Albumin 4.3 g/dL (3.5-5.0); Albumin Globulin Ratio 1.7 (1.0-2.8); Alkaline Phosphatase 64 U/L (38-126); Blood Urea Nitrogen 13 mg/dL (7-17); Calcium 9.7 mg/dL (8.4-10.2); Carbon Dioxide 26 mmol/L (22-32); Chloride 104 mmol/L (98-107); Cholesterol 189 mg/dL (140-199); Estimated Glomerular Filt Rate > 60 mL/min (>60); Globulin 2.5 g/dL (1.7-4.1); Glucose 97 mg/dL (70-99); HDL Cholesterol 54 mg/dL (40-60); HEMOLYSIS < 15 (0-50); Potassium 4.2 mmol/L (3.4-5.1); Sodium 138 mmol/L (137-145); Total Protein 6.8 g/dL (6.3-8.2); Triglycerides 289 mg/dL (35-150)
[2025-03-06 08:54] LABS: TSH w/ Reflex to FT4 1.43 uIU/mL (0.47-4.68)
== END ==
PROVIDERS: PCP Registered Nurse Diabetes Educator; Referring Provider Registered Nurse Diabetes Educator; Visit Provider Registered Nurse Diabetes Educator
DX: K76.0 Fatty (change of) liver, not elsewhere classified (principal); E03.9 Hypothyroidism, unspecified; D72.829 Elevated white blood cell count, unspecified; E78.2 Mixed hyperlipidemia
CPT/HCPCS: 36415; 80053; 80061; 84443; 85027